=== PATIENT | male | born 1975 | race Caucasian/White ===

== ENCOUNTER 2020-04-21 11:02 | Emergency (ER) | payer MEDICAID, SELFPAY ==
[2020-04-21 11:07] VITALS: BP 154/94; PULSE 84; RESP 18; TEMP 36.6; O2SAT 96
--- NOTE | 2020-04-21 11:15 | DI.RAD_ITS ---
EXAM: XR PORTABLE CHEST AP CLINICAL HISTORY: cough, R wheeze. TECHNIQUE: 2D digital imaging was performed. COMPARISON: No exams were available for comparison FINDINGS: LUNGS: Clear. No pleural abnormality seen. HEART: Normal. MEDIASTINUM: Normal. OTHER FINDINGS: None. IMPRESSION: No acute pulmonary findings. DATA REPOSITORY: RADIATION DOSE DELIVERED: Total DLP
--- NOTE | 2020-04-21 11:16 | ED.GENADUL_ITS ---
Discharge Plan Disposition Patient Disposition: HOME Condition: Improving Discharge Details Clinical Impression: Bronchitis with bronchospasm Primary Care Provider: Carmela,[facility] ED Provider: Donaldo Girard Home Meds and New Rx's Prescriptions: New doxycycline hyclate 100 mg capsule 100 mg PO BID 7 Days Qty: 14 RF: 0 Discharge Instructions Instructions: Acute Bronchitis (ED) Additional Instructions: May use albuterol inhaler 1 to 2 puffs every 4 hours as needed for cough or wheezing. Return if you feel you need to use the inhaler more frequently Take antibiotics as prescribed. May use nmof-dhi-jylekri Mucinex once daily to help break up secretions. We will ask our care management team to arrange a follow-up for you to establish local primary care. Stand Alone Forms: PENDING COVID-19 TESTING Medical Decision Making 44-year-old male former smoker presents with approximately 3 days of cough, congestion, sore throat, right sinus pressure. Sick contacts with his children at home. No travel outside of the critical access hospital. He has been eating and drinking okay and a constitutional review of systems is otherwise negative. He is afebrile with 96% sat on room air. His exam is most notable for right base wheeze. Differential gnosis includes bronchitis, bronchospasm, viral syndrome. Must exclude pneumonia. Patient was given albuterol inhaler with spacer, swab for COVID-19, referred for chest x-ray. Chest x-ray without focal infiltrate. Patient improved following inhaled beta agonist. I will place him on a course of doxycycline for presumed developing bronchitis given his history of previous tobacco use. He is stable and improving. We will arrange for outpatient follow-up to establish primary care. HPI General Mode of arrival: ambulatory . Date/Time Provider Initiated Documentation: 04/21/20 11:02 . Limitations to Documentation: no limitations . Information obtained by: patient . History of Present Illness 44 year old M presents to the emergency department with the chief complaint of Cough, congestion, right sinus discomfort, described as moderate and similar to prior episodes, Quality is described as dull and constant, and is localized to the chest. Patient reports no radiation. Patient started experiencing this day(s) and it has been constant. No relieving factors improve symptom(s), No exacerbating factors reported . Patient notes cough and other (Slight wheeze); denies fever/chills. Patient did receive the following treatments prior to arrival, none Related Data Home Medications Medication Instructions Recorded Confirmed doxycycline hyclate 100 mg PO BID 7 Days #14 cap 04/21/20 Previous Rx's Medication Instructions Recorded doxycycline hyclate 100 mg PO BID 7 Days #14 cap 04/21/20 Allergies Allergy/AdvReac Type Severity Reaction Status Date / Time No Known Allergies Allergy Unverified 04/21/20 11:11 General Stated Complaint: RespSymp ARABELLA: 3 Review of Systems Narrative: Sick contacts with kids who had similar. No nausea or vomiting. No chest pain or palpitations. Inability to swallow. Feels congested. Questions wheezing. 8 systems reviewed and otherwise negative [facility] Social History Smoking/Tobacco Use Status: Former Tobacco Use Alcohol Intake: current Alcohol Intake frequency: a few times a month Drug use: Never Substance use type: does not use Do you feel safe at home: Yes Do you feel safe in your relationship?: Yes Exam Narrative Exam Narrative: GEN: awake, alert, oriented 3. Pleasant, well groomed, interactive. HEAD: Normocephalic, atraumatic ENT: Mucous membranes moist, oropharynx unremarkable, External ear exam unremarkable EYES: PERRL, EOMI NECK: Full ROM, no LENCHO, no menigismus CHEST/RESP: Nontender, right base wheeze otherwise clear CARDIOVASCULAR: RRR, no murmur, rub wendi. 2+ Rad pulse bilateral ABDOMEN: Soft, nontender, no mass. +Bowel sounds EXT: Full ROM, no edema, no rash Neuro: Grossly normal neurologic exam, conversant, interactive. Psych: Speech fluent, thoughts congruent, affect normal Course Vital Signs Vital signs: Vital Signs Temperature 36.6 C 04/21/20 11:07 Pulse 84 04/21/20 11:07 Respiratory Rate 18 04/21/20 11:07 Blood Pressure 154/94 H 04/21/20 11:07 Pulse Oximetry 96 04/21/20 11:07 Temperature 36.6 C 04/21/20 11:07 Temperature Source Skin 04/21/20 11:07 Pulse 84 04/21/20 11:07 Respiratory Rate 18 04/21/20 11:07 Respiratory Effort Non-Labored 04/21/20 11:10 Blood Pressure 154/94 H 04/21/20 11:07 Blood Pressure Position Sitting 04/21/20 11:07 Pulse Oximetry 96 04/21/20 11:07 Oxygen Delivery Method Room Air 04/21/20 11:07 Oxygen Flow Rate 0 04/21/20 11:07 Pain Level 5 04/21/20 11:07
--- NOTE | 2020-04-21 12:02 | DI.VRAD_ITS ---
PROCEDURE INFORMATION: Exam: XR Chest, 1 View Exam date and time: 04/21/2020 11:47 AM Age: 44 years old Clinical indication: Shortness of breath TECHNIQUE: Imaging protocol: XR of the chest Views: 1 view. COMPARISON: No relevant prior studies available. FINDINGS: Lungs: Unremarkable. No consolidation. Pleural space: Unremarkable. No pleural effusion. No pneumothorax. Heart/Mediastinum: Unremarkable. No cardiomegaly. Bones/joints: Unremarkable. IMPRESSION: No acute findings. Dictated and Authenticated by: Donald Parmar MD. Ordering:JOSE Fulton MD
[2020-04-21 12:15] VITALS: BP 140/91; PULSE 79; RESP 20; TEMP 37.3; O2SAT 94
[2020-04-23 23:53] LABS: Patient Race White; SARS-CoV-2 RNA Undetected (Undetected); SARS-CoV-2 Specimen Source Nasopharynx
--- NOTE | 2020-04-24 08:44 | NUR.NOTE ---
Nursing Note: Contacted patient via phone # electronic equipment installer to report negative covid test. Pt did not answer and unable to leave voicemail.
--- NOTE | 2020-04-24 08:58 | NUR.NOTE ---
Nursing Note: Pt called and was notified of negative covid results
== END 2020-04-21 12:22 | disposition home or self-care (01) ==
LOC: ER 12:19
PROVIDERS: Emergency Provider Emergency Medicine
DX: J20.8 Acute bronchitis due to other specified organisms (principal); J02.9 Acute pharyngitis, unspecified; Z03.818 Encounter for observation for suspected exposure to other biological agents ruled out; R51.9 Headache, unspecified
CPT/HCPCS: 99283; U0003; 71045; 99284

== ENCOUNTER 2020-05-11 23:17 | Emergency (ER) | payer MEDICAID, SELFPAY ==
[2020-05-11 23:24] VITALS: BP 119/81; PULSE 97; RESP 16; TEMP 36.5; O2SAT 98
--- NOTE | 2020-05-11 23:30 | RT.EKG_ITS ---
APPROVED REPORT Exam: Resting ECG Patient Location: E HR:87 bpm ECG Measurements Heart Rate 87 AXIS PA 152 P 16 QRSd 120 QRS -13 QT 372 T 20 QTc 448 Conclusion EKG 23: 42 Rate 87, sinus rhythm, no significant ST elevations or depressions, no evidence of STEMI. nonspecific intraventricular conduction delay
--- NOTE | 2020-05-11 23:38 | ED.GENADUL_ITS ---
Discharge Plan Disposition Patient Disposition: HOME Condition: Good Discharge Details Clinical Impression: Anxiety, Acute bronchospasm Primary Care Provider: Lori Merritt ED Provider: Mak Graham Home Meds and New Rx's Prescriptions: Continued albuterol sulfate 90 mcg/actuation HFA aerosol inhaler 2 puff inhalation Q4H PRNRF: 0 Flovent HFA 44 mcg/actuation HFA aerosol inhaler 2 puff inhalation BID Qty: 10.6 RF: 1 Discharge Instructions Instructions: Bronchospasm (ED), Anxiety (ED) Additional Instructions: At this time symptoms appear to be inconsistent with pneumonia, heart attack, or other life-threatening etiology. Your vital signs are reassuringly normal. I suspect there is a combination of mild postnasal drip that is causing some of your symptoms in conjunction with, as we discussed, potential for an anxiety component as well. Please continue your inhalers as directed at home. Do not hesitate to contact me in the emergency department if your symptoms persist or worsen. If you notice any worsening of your symptoms, or any new symptoms such as vomiting, diarrhea, fever, chills, shortness of breath, chest pain, numbness, weakness, or fainting , please return immediately to the emergency department for reevaluation. Please follow up with your primary care provider as soon as possible for reassessment and reevaluation. As always, it was a pleasure participating in your medical care today. Referrals: Lori Merritt, STAINING MACHINE OPERATOR [Primary Care Provider] - Discharge Data Discharge Date/Time-TO BE ENTERED AT DEPARTURE: 05/11/20 23:50 Medical Decision Making Pleasant 44-year-old male with no significant past medical history who presents today for evaluation of a brief episode of a globus sensation. Patient states that few weeks ago he had similar episode of feeling like there was something stuck in his throat, and at that time additionally had mild shortness of breath, after work-up here he was prescribed albuterol, chest x-ray is negative discharged home with eventual follow-up with his PCP. He was started on a steroid inhaler as well. This evening he states that he was lying in bed, felt a small amount of sputum in the back of his throat, and felt like suddenly could not breathe. He sat up, drank some water was able to get this down well without difficulty. He denied any associated chest pain chest tightness tearing sensation in his chest, arm neck or shoulder pain. He denied any pleuritic chest pain. He took a few puffs of his inhaler, then came to the ER for further evaluation. Currently states that his symptoms are completely resolved and he feels well. He currently denies any difficulty swallowing breathing or pain or significant sensation in his throat. He is able to eat and drink without difficulty. He states that the symptoms that he had today are definitely more mild than his previous episode, but he was concerned and felt that evaluation was indicated. He denies any chronic or gradual difficulty swallowing. He denies any vomiting. He does admit to being under a significant amount of stress as of late, and does feel that perhaps this could be a form of panic attack. He denies any other complaints at this time. Exam is notably unremarkable, vital signs stable. Resting heart rate shows no evidence of tachycardia on exam. Patient feels well at this time. Screening EKG demonstrates no signs of STEMI or other abnormality. I did offer the patient further laboratory work-up and imaging of the neck and chest, but at this time with a resolution of his symptoms patient feels well and would like to go home. I feel his symptoms are likely secondary to a component of panic or anxiety. There may be a small component of postnasal drip as well. Recommended loratadine or Benadryl as needed for home use. At this time signs and symptoms appearing consistent with dissection, ACS, Ludewig's angina, angioedema, or other life-threatening etiology. Respecting the patient's wishes will discharge home. No current signs of acute life-threatening etiology. Discussed red flags which to return. I have extensively reviewed the treatment plan and discharge instructions with the patient. I have addressed all patient concerns at this time. The patient was made aware of what symptoms to monitor for that would warrant a return to the emergency department. Discussed the plan with the patient, they demonstrate verbal understanding and agreement with our assessment and plan at this time. EKG 23: 42 Rate 87, intervals normal, sinus rhythm, no significant ST elevations or depressions, no evidence of STEMI, HPI General Date/Time Provider Initiated Documentation: 05/11/20 23:20 . HPI Narrative: Pleasant 44-year-old male with no significant past medical history who presents today for evaluation of a brief episode of a globus sensation. Patient states that few weeks ago he had similar episode of feeling like there was something stuck in his throat, and at that time additionally had mild shortness of breath, after work-up here he was prescribed albuterol, chest x-ray is negative discharged home with eventual follow-up with his PCP. He was started on a steroid inhaler as well. This evening he states that he was lying in bed, felt a small amount of sputum in the back of his throat, and felt like suddenly could not breathe. He sat up, drank some water was able to get this down well without difficulty. He denied any associated chest pain chest tightness tearing sensation in his chest, arm neck or shoulder pain. He denied any pleuritic chest pain. He took a few puffs of his inhaler, then came to the ER for further evaluation. Currently states that his symptoms are completely resolved and he feels well. He currently denies any difficulty swallowing breathing or pain or significant sensation in his throat. He is able to eat and drink without difficulty. He states that the symptoms that he had today are definitely more mild than his previous episode, but he was concerned and felt that evaluation was indicated. He denies any chronic or gradual difficulty swallowing. He denies any vomiting. He does admit to being under a significant amount of stress as of late, and does feel that perhaps this could be a form of panic attack. He denies any other complaints at this time. Related Data Home Medications Medication Instructions Recorded Confirmed albuterol sulfate 90 mcg/actuation 2 puff INHALATION Q4H PRN g 04/30/20 05/11/20 aerosol inhaler fluticasone propionate 44 2 puff INHALATION BID #10.6 g 04/30/20 05/11/20 mcg/actuation HFA aerosol inhaler Previous Rx's Medication Instructions Recorded fluticasone propionate 44 2 puff INHALATION BID #10.6 g 04/30/20 mcg/actuation HFA aerosol inhaler Allergies Allergy/AdvReac Type Severity Reaction Status Date / Time No Known Allergies Allergy Unverified 05/11/20 23:27 General Stated Complaint: GenMedical ARABELLA: 4 Review of Systems All systems reviewed & are unremarkable except as noted in HPI and below PFSH Medical History History of kidney stones History of sciatica RLE Obesity Social History Smoking/Tobacco Use Status: Former Tobacco Use Tobacco: How many years used: 30 Smokeless tobacco user: chewing tobacco Counseling given: provider counseling Smoking risk assessment performed?: Yes Alcohol Intake: current Alcohol Intake frequency: a few times a month Drug use: Never Substance use type: does not use Household members: spouse and children Number of Children: 6 Communication Needs: None Do you need help understanding health information?: Rarely current occupation: Unemployed Sexually active: Yes Do you think of yourself as: straight/heterosexual Current gender identity: male Do you feel safe at home: Yes Do you feel safe in your relationship?: Yes Exam Narrative Exam Narrative: 1.Const: Well-nourished, Well-developed, appearing stated age 2.Eyes: PERRL, no conjunctival injection, and symmetrical lids. 3.ENT: Atraumatic external nose and ears. Moist MM. Neck: Symmetric, trachea midline, No thyromegaly. No evidence of swelling in the posterior oropharynx. No tongue enlargement or angioedema. No signs of airway compromise or peritonsillar abscess whatsoever. No evidence of dental caries. No evidence of Ludewig's angina. Palpation of the throat demonstrates no evidence of swelling deviation or other abnormality. Visual inspection demonstrates the patient's excellent ability to swallow with no signs of airway compromise 4.CVS: +S1/S2, No murmurs or gallops. Peripheral pulses 2+ and equal in all extremities. Brisk capillary refill in all extremities. 5.RESP: Unlabored respiratory effort. Clear to auscultation bilaterally. No wheezes rales or rhonchi 6.GI: Soft, Nontender/Nondistended, No hepatosplenomegaly. No guarding or rebound. 7.MSK: Normocephalic/Atraumatic, Extremities w/o deformity or ttp No cyanosis or clubbing, Normal movement of all extremities 8.Skin: Warm, Dry. No rashes or lesions. 9.Neuro: digital marketing officer II-XII grossly intact. Sensation grossly intact, no focal neurologic deficits. 10.Psych: (AAO) x3. Appropriate mood and affect Course Vital Signs Vital signs: Vital Signs Temperature 36.5 C 05/11/20 23:24 Pulse 97 H 05/11/20 23:24 Respiratory Rate 16 05/11/20 23:24 Blood Pressure 119/81 05/11/20 23:24 Pulse Oximetry 98 05/11/20 23:24 Temperature 36.5 C 05/11/20 23:24 Temperature Source Skin 05/11/20 23:24 Pulse 97 H 05/11/20 23:24 Respiratory Rate 16 05/11/20 23:24 Respiratory Effort Non-Labored 05/11/20 23:24 Blood Pressure 119/81 05/11/20 23:24 Blood Pressure Position Sitting 05/11/20 23:24 Pulse Oximetry 98 05/11/20 23:24 Oxygen Delivery Method Room Air 05/11/20 23:24 Oxygen Flow Rate 0 05/11/20 23:24
== END 2020-05-11 23:50 | disposition home or self-care (01) ==
PROVIDERS: Emergency Provider Student in an Organized Health Care Education/Training Program; PCP Nurse Practitioner Adult Health
DX: J98.01 Acute bronchospasm (principal); F41.9 Anxiety disorder, unspecified; F45.8 Other somatoform disorders
CPT/HCPCS: 93005; 99283; 93010

== ENCOUNTER 2020-05-18 09:21 | Outpatient (CLI) | payer MEDICAID, SELFPAY ==
--- NOTE | 2020-05-18 10:15 | DI.RAD_ITS ---
EXAM: XR CHEST 2V PA LATERAL CLINICAL HISTORY: Bronchitis with bronchospasm, J20.9, r/o acute process TECHNIQUE: 2D digital imaging was performed. COMPARISON: CR,XR XR PORTABLE CHEST AP from 04/21/2020 FINDINGS: The heart is not enlarged. The lungs are clear and well expanded. No pleural effusion seen. Mediastin al contours appear intact. IMPRESSION: Normal chest. RADIATION DOSE DELIVERED: Total DLP
== END 2020-05-18 09:41 ==
PROVIDERS: PCP Nurse Practitioner Adult Health; Visit Provider Nurse Practitioner Adult Health
DX: J20.9 Acute bronchitis, unspecified (principal)
CPT/HCPCS: 71046

== ENCOUNTER 2020-05-23 21:21 | Emergency (ER) | payer MEDICAID, SELFPAY ==
--- NOTE | 2020-05-23 21:15 | RT.EKG_ITS ---
APPROVED REPORT Exam: Resting ECG Patient Location: E HR:66 bpm ECG Measurements Heart Rate 66 AXIS W[place] 155 P 5 QRSd 120 QRS -5 QT 390 T 12 QTc 407 Conclusion Sinus rhythm...normal P axis, V-rate 60- 99 Nonspecific intraventricular conduction delay...QRSd >115mS, not LBBB/RBBB
[2020-05-23 21:29] VITALS: BP 130/80; PULSE 74; RESP 18; TEMP 37.1; O2SAT 98
--- NOTE | 2020-05-23 21:37 | ED.GENADUL_ITS ---
Discharge Plan Disposition Patient Disposition: HOME Condition: Stable Discharge Details Clinical Impression: Globus sensation, Chest pain, Anxiety Primary Care Provider: Lori Merritt ED Provider: Claudio Whitman Home Meds and New Rx's Prescriptions: Continued Flovent HFA 44 mcg/actuation HFA aerosol inhaler 2 puff inhalation BID Qty: 10.6 RF: 1 levalbuterol tartrate [Xopenex HFA] 45 mcg/actuation HFA aerosol inhaler 2 inh inhalation Q4H PRN (Reason: shortness of breath or wheezing) Qty: 15 RF: 0 fluticasone propionate [Flonase Allergy Relief] 50 mcg/actuation spray,suspension 1 - 2 spray intranasal DAILY Qty: 9.9 RF: 0 clonazepam 0.5 mg tablet 0.5 mg PO BID PRN (Reason: acute anxiety/panic) Qty: 6 RF: 0 Discharge Instructions Instructions: Chest Pain (ED) Additional Instructions: Follow up as with your primary care provider within 1 week if you develop severe worsening pain or feel more ill return to the emergency department Medical Decision Making 44 yo male with hx of prior smoking, recent treatment with prednisone for bronchospasm which he finished yesterday per patient, and was recently prescribed klonopin for anxiety and has been having issues with a globus sensation in his throat comes in with continued feeling as though he has a lump in his throat and tonight about 4 hours ago started to have burning and tightness in his chest that has been happening off and on for the past 3 weeks. ARrives hd stable does appear anxious on exam speaking in full sentences. He has clear lungs and no murmurs, denies drug use. No leg swelling or calf pain, no pleuritic chest pain and no hypoxia or tachycardia so doubt PE. His pain could be due to gerd or anxiety, heart score is 2, will obtain troponin. He does note the chest and throat discomfort so possibility for a dissection, will obtain cta and monitor. CT unremarkable though comment can't exclude PE though my clinical suspicion for this is low and was more concerned for dissection which was negative. He feels better after the ativan. Still has globus sensation and ct goes up through the neck and shows no abnormalities of concern.Given patient has had symptoms over 3 hours do not feel repeat troponin would be of benefit, will d/c home and advised to f/u with pcp this week and has an appointment Thursday per pt. Return precautions given Differential Diagnosis Differential Diagnosis: dissection, globus sensation, nstemi, anxiety Medical Records Medical records reviewed: Yes I reviewed the patient's medical records. Imaging Data Radiologic Study: Attestation: I personally reviewed and interpreted this imaging study as follows: Imaging: CT Scan Radiologist's impression: FINDINGS: Pulmonary arteries: Due to timing of the scan after the administration of intravenous contrast, the pulmonary arteries are not adequately opacified to diagnostically evaluate for pulmonary embolus. Aorta: No aortic aneurysm. No aortic dissection. Lungs: No consolidation. No masses. Pleural space: Unremarkable. No pneumothorax. No pleural effusion. Heart: No cardiomegaly. No pericardial effusion. Lymph nodes: Unremarkable. No enlarged lymph nodes. Liver: Hepatic steatosis. Bones/joints: No acute fracture. Soft tissues: Unremarkable. IMPRESSION: Due to timing of the scan after the administration of intravenous contrast, the pulmonary arteries are not adequately opacified to diagnostically evaluate for pulmonary embolus. ECG Data Attestation: I personally reviewed and interpreted this ECG (s) as follows: Prior ECG tracings: not available for review Interpretation: sinus rhythm, rate of 66 pr 155 qtc 407 HPI General Mode of arrival: ambulatory . Date/Time Provider Initiated Documentation: 05/23/20 21:24 . Limitations to Documentation: no limitations . Information obtained by: patient . History of Present Illness 44 year old M presents to the emergency department with the chief complaint of chest burning, described as moderate, Patient started experiencing this week(s) (3) and it has been intermittent. No relieving factors improve symptom(s), No exacerbating factors reported . Patient notes other (globus sensation in throat). Related Data Home Medications Medication Instructions Recorded Confirmed fluticasone propionate 44 2 puff INHALATION BID #10.6 g 04/30/20 05/23/20 mcg/actuation HFA aerosol inhaler fluticasone propionate 50 1 - 2 spray INTRANASAL DAILY #9.9 05/14/20 05/23/20 mcg/actuation nasal ml spray,suspension levalbuterol tartrate 45 2 inh INHALATION Q4H PRN #15 g 05/14/20 05/23/20 mcg/actuation aerosol inhaler clonazepam 0.5 mg tablet 0.5 mg PO BID PRN #6 tab 05/18/20 05/23/20 Previous Rx's Medication Instructions Recorded fluticasone propionate 44 2 puff INHALATION BID #10.6 g 04/30/20 mcg/actuation HFA aerosol inhaler fluticasone propionate 50 1 - 2 spray INTRANASAL DAILY #9.9 05/14/20 mcg/actuation nasal ml spray,suspension levalbuterol tartrate 45 2 inh INHALATION Q4H PRN #15 g 05/14/20 mcg/actuation aerosol inhaler clonazepam 0.5 mg tablet 0.5 mg PO BID PRN #6 tab 05/18/20 Allergies Allergy/AdvReac Type Severity Reaction Status Date / Time No Known Allergies Allergy Unverified 05/18/20 11:48 General Stated Complaint: Chest Pain ARABELLA: 2 Review of Systems All systems reviewed & are unremarkable except as noted in HPI and below Constitutional Constitutional: Denies chills, Denies fever(s) and Denies weakness Cardiovascular Cardiovascular: Denies dyspnea Respiratory Respiratory: Denies cough and Denies dyspnea Gastrointestinal Gastrointestinal: Denies abdominal pain, Denies nausea and Denies vomiting Musculoskeletal Musculoskeletal: Denies joint swelling Neurologic Neurologic: Denies weakness Psychiatric Psychiatric: Denies depression [facility] Medical History History of kidney stones History of sciatica RLE Obesity Social History Smoking/Tobacco Use Status: Former Tobacco Use Tobacco: How many years used: 30 Smokeless tobacco user: chewing tobacco Counseling given: provider counseling Smoking risk assessment performed?: Yes Alcohol Intake: current Alcohol Intake frequency: a few times a month Drug use: Never Substance use type: does not use Household members: spouse and children Number of Children: 6 Communication Needs: None Do you need help understanding health information?: Rarely current occupation: Unemployed Sexually active: Yes Do you think of yourself as: straight/heterosexual Current gender identity: male Do you feel safe at home: Yes Do you feel safe in your relationship?: Yes Exam Const General: anxious Orientation: alert HENMT Head: normal to inspection Ears: external ears normal General nose exam: external nose normal Mouth: moist mucous membranes Eyes General: appearance normal, both eyes and all related structures Neck Neck: normal visual inspection Resp Effort & Inspection: normal respiratory effort and able to speak in complete sentences Cardio Rate: regular rate Skin General skin exam: no rashes or lesions noted Neuro General: patient alert and patient oriented x3 Extrem General: normal to inspection Psych Mental Status: mental status grossly normal Course Vital Signs Vital signs: Vital Signs Temperature 37.1 C 05/23/20 21:29 Pulse 74 05/23/20 21:29 Respiratory Rate 18 05/23/20 21:29 Blood Pressure 130/80 05/23/20 21:29 Pulse Oximetry 98 05/23/20 21:29 Temperature 37.1 C 05/23/20 21:29 Pulse 74 05/23/20 21:29 Respiratory Rate 18 05/23/20 21:29 Blood Pressure 130/80 05/23/20 21:29 Blood Pressure Position Supine 05/23/20 21:29 Pulse Oximetry 98 05/23/20 21:29 Oxygen Delivery Method Room Air 05/23/20 21:29 Oxygen Flow Rate 0 05/23/20 21:29 Pain Level 2 05/23/20 21:29
[2020-05-23] MEDS: Normal Saline Flush 10 ML SYR IVP (21:39)
[2020-05-23] MEDS: LORazepam 2 MG/ML VIAL 1 MG IVP (21:39)
[2020-05-23 21:48] LABS: Abs Immature Grans 0.05 10^3/uL (0.0-0.06); Absolute Basophil Count 0.06 10^3/uL (0.0-0.2); Absolute Lymphocyte Count 2.36 10^3/uL (1.2-3.4); Absolute Monocyte Count 0.88 10^3/uL (0.1-0.8); Basophils % 0.5; Eosinophils % 1.6; HGB 13.8 g/dL (13.5-17.5); Immature Grans % 0.4; Lymphocytes % 19.2; MCH 29.1 pg (27.0-33.0); MCHC 32.9 % (32.0-36.0); MCV 88.6 fL (80-95); Monocytes % 7.2; Neutrophils % 71.1; Nucleated RBC 0 %; Platelet Count 250 10^3/uL (130-400); RBC 4.74 10^6/uL (4.36-5.78); RDW 12.7 % (11.8-14.1); RDW-SD 41.5 fL; WBC 12.28 10^3/uL (4.4-10.8)
[2020-05-23 21:49] LABS: Absolute Neutrophil Count 8.73 10^3/uL (1.2-6.7)
[2020-05-23] MEDS: Normal Saline - Diluent 50 ML VIAL IV (21:52)
[2020-05-23] MEDS: Omnipaque 350 MG/ML 100 ML BTL IJ (21:52)
[2020-05-23 21:59] LABS: ALT 39 U/L (16-63); AST 16 U/L (15-37); Albumin 3.7 g/dL (3.4-5.0); Alkaline Phosphatase 127 U/L (46-116); Anion Gap 9.6 mmol/L (3-11); BUN 11 mg/dL (7-18); Bilirubin, Total 0.3 mg/dL (0.2-1.0); CO2 26.4 mmol/L (21.0-32.0); Calcium 8.6 mg/dL (8.5-10.1); Chloride 105 mmol/L (98-107); Glucose 116 mg/dL (74-106); Magnesium 2.1 mg/dL (1.8-2.4); Potassium 3.5 mmol/L (3.5-5.1); Sodium 141 mmol/L (136-145); Total Protein 7.1 g/dL (6.4-8.2)
[2020-05-23 22:05] LABS: Troponin I < 0.05 ng/mL (<0.06)
--- NOTE | 2020-05-23 22:05 | DI.CT_ITS ---
EXAM: CT THORAX CTA CLINICAL HISTORY: chest and throat discomfort. TECHNIQUE: Imaging Protocol: Axial CT angiography was performed with multi-slice acquisition and mu lti-planar and/or 3D reconstructions. CONTRAST MATERIAL: Intravenous: Omnipaque 350 Contrast volume:100 mL COMPARISON: CR XR CHEST 2V PA LATERAL from 05/18/2020 FINDINGS: Pulmonary Arteries: The pulmonary arteries are not adequately opacified for evaluation of pulmonary e mboli on this examination. Tracheobronchial tree: Patent where visualized. Mediastinum and Mary: No dominant adenopathy or fluid collection. Pulmonary parenchyma: No consolidation or dominant measurable mass. No architectural distortion. Pleura: No effusion or pneumothorax. Heart: The heart is not dilated. No coronary artery calcifications are seen. No pericardial effusion. Aorta: Thoracic aorta non-dilated. No dissection. Upper abdomen: Diffuse fatty infiltration of the liver. Bones: Mild degenerative changes. Soft tissues: IMPRESSION: 1. Cannot diagnostically evaluate for pulmonary emboli due to the timing of the administration of the IV contrast. 2. No acute pulmonary process. RADIATION DOSE DELIVERED: 911.12mGy.cm Total DLP DATA REPOSITORY: All CT scans at this facility are submitted to the National Radiology Data Registry (NRDR) Dose Index Registry (DIR) with the [employer] ([employer]). RADIATION OPTIMIZATION: All CT scans at this facility use at least one of these dose optimization te chniques: automated exposure control; mA and/or kV adjustment per patient size (includes targeted exa ms where dose is matched to clinical indication); or iterative reconstruction.
[2020-05-23 22:12] VITALS: RESP 18
--- NOTE | 2020-05-23 22:19 | DI.VRAD_ITS ---
PROCEDURE INFORMATION: Exam: CT Angiography Chest With Contrast Exam date and time: 05/23/2020 9:55 PM Age: 44 years old Clinical indication: Chest pain; Type not specified; Patient HX: Chest and throat discomfort [id number]; Additional info: Please include throat in sfov per ordering physician. PT has been experiencing a tightness in his throat for approx 1 month S/P choking on hot coffee. PT was seen by his primary care provider and prescribed prednisone. PT recently finished the prednisone but does not feel any better. Continues to have difficulty breathing and today has started experiencing a burning sensation in his chest. TECHNIQUE: Imaging protocol: Computed tomographic angiography of the chest with intravenous contrast. 3D rendering (Not supervised by radiologist): MIP and/or 3D reconstructed images were created by the technologist. Radiation optimization: All CT scans at this facility use at least one of these dose optimization techniques: automated exposure control; mA and/or kV adjustment per patient size (includes targeted exams where dose is matched to clinical indication); or iterative reconstruction. Contrast material: [id number]; Contrast volume: 100 ml; Contrast route: INTRAVENOUS (IV); COMPARISON: CR XR CHEST 2V PA LATERAL 05/18/2020 11:05 AM FINDINGS: Pulmonary arteries: Due to timing of the scan after the administration of intravenous contrast, the pulmonary arteries are not adequately opacified to diagnostically evaluate for pulmonary embolus. Aorta: No aortic aneurysm. No aortic dissection. Lungs: No consolidation. No masses. Pleural space: Unremarkable. No pneumothorax. No pleural effusion. Heart: No cardiomegaly. No pericardial effusion. Lymph nodes: Unremarkable. No enlarged lymph nodes. Liver: Hepatic steatosis. Bones/joints: No acute fracture. Soft tissues: Unremarkable. IMPRESSION: Due to timing of the scan after the administration of intravenous contrast, the pulmonary arteries are not adequately opacified to diagnostically evaluate for pulmonary embolus. Dictated and Authenticated by: Juan Carlson MD. Ordering:YUNG Snyder MD
[2020-05-23 22:26] VITALS: BP 128/74; PULSE 69; RESP 15; TEMP 36.7; O2SAT 96
== END 2020-05-23 22:44 | disposition home or self-care (01) ==
PROVIDERS: Emergency Provider Emergency Medicine; PCP Nurse Practitioner Adult Health
DX: R09.89 Other specified symptoms and signs involving the circulatory and respiratory systems (principal); F45.8 Other somatoform disorders; R07.89 Other chest pain; F41.9 Anxiety disorder, unspecified
CPT/HCPCS: 36415; 71275; 80053; 93005; 96374; 99285; 83735; 84484; 85025; 93010; 99284; J2060; J3490

== ENCOUNTER 2020-10-17 02:40 | Outpatient (CLI) | payer MEDICAID, SELFPAY ==
[2020-10-18 14:19] LABS: COVID-19 RT-PCR UVMMC Result Negative (Negative)
== END 2020-10-17 02:41 | disposition home or self-care (01) ==
LOC: LBO 02:40
PROVIDERS: PCP Nurse Practitioner Adult Health; Visit Provider Nurse Practitioner Adult Health
DX: Z20.822 Contact with and (suspected) exposure to COVID-19 (principal)
CPT/HCPCS: U0003

== ENCOUNTER 2020-11-03 17:54 | Emergency (ER) | payer MEDICAID, SELFPAY ==
[2020-11-03 18:05] VITALS: BP 173/106; PULSE 98; RESP 16; O2SAT 98
--- NOTE | 2020-11-03 18:09 | ED.GENADUL_ITS ---
Discharge Plan Disposition Patient Disposition: HOME Condition: Stable Discharge Details Clinical Impression: Diabetes mellitus, new onset Primary Care Provider: Lori Merritt ED Provider: Mak Graham Home Meds and New Rx's Prescriptions: New metformin 500 mg tablet 500 mg PO BID Qty: 30 RF: 0 (DME) lancets [Accu-Chek Softclix Lancets] Misc See Rx Instructions .ROUTE .MEDSUPPLY Qty: 100 RF: 0 (DME) Accu-Chek Guide test strips Strip See Rx Instructions .ROUTE .MEDSUPPLY Qty: 100 RF: 0 (DME) blood-glucose meter Kit See Rx Instructions .ROUTE .MEDSUPPLY Qty: 1 RF: 0 Continued ibuprofen 600 mg tablet 600 mg PO Q8H PRN (Reason: pain) Qty: 30 RF: 0 citalopram 20 mg tablet 20 mg PO DAILY Qty: 90 RF: 1 fluticasone propionate [Flonase Allergy Relief] 50 mcg/actuation spray,suspension 1 - 2 spray intranasal DAILY Qty: 9.9 RF: 3 clonazepam 0.5 mg tablet 0.5 mg PO BID PRN (Reason: acute anxiety/panic) Qty: 10 RF: 0 levalbuterol tartrate [Xopenex HFA] 45 mcg/actuation HFA aerosol inhaler 2 inh inhalation Q4H PRN (Reason: shortness of breath or wheezing) Qty: 15 RF: 6 Discharge Instructions Instructions: Type 2 Diabetes in Adults: New Diagnosis (ED), Diabetes and Nutrition (ED) Additional Instructions: A prescription for Metformin, a glucometer, testing strips and lancets have been sent electronically to your pharmacy. Check your sugar regularly as directed. Call your primary care doctor on Thursday morning to schedule a follow-up appointment for reevaluation this week and for diabetes education. Return immediately to the emergency department if you develop any worsening or new concerning symptoms. Discharge Data Discharge Date/Time-TO BE ENTERED AT DEPARTURE: 11/03/20 22:25 Discharge Physician: Nancy Arora Medical Decision Making <Nancy Arora DO - Last Filed: 11/04/20 10:17> 45-year-old male with a history of morbid obesity presents for polyuria polydipsia for the past few days and blood sugar 48 at home today. Fingerstick glucose here 450. Blood pressure hypertensive. Remainder vitals within normal limits. He appears nontoxic and comfortable. His abdomen is obese. We will check screening labs, urinalysis to rule out acute DKA. Will give IV fluids and reassess. Labs reviewed. Normal white blood cell count. Glucose 500. Bicarb 19.1. Anio n gap 16.9. Potassium 3.9. VBG notes a pH of 7.35, bicarb of 20. Urinalysis notes glucose but no evidence of infection. Will give additional IV fluids, 8 units of insulin and 20 mEq IV of potassium chloride. Patient reassessed and he states he would prefer to go home. Patient remains hemodynamically stable and appears in no acute distress. Will plan for recheck BMP after 2 L of IV fluid. If glucose improves and electrolytes improve, will plan for discharge to home. Prescriptions for Metformin, glucometer, testing strips and lancets sent electronically to his pharmacy. Case endorsed to Dr. Graham to follow-up on repeat BMP after IV fluids, reassessment and final disposition. Medical Records Medical records reviewed: Yes I reviewed the patient's medical records. Lab Data Lab results reviewed: Yes I reviewed the patient's lab results. Labs: Laboratory Tests Range/Units 11/03/20 11/03/20 11/03/20 18:30 18:30 18:41 WBC (4.4-10.8) 10^3/uL 8.75 RBC (4.36-5.78) 10^6/uL 5.26 Hgb (13.5-17.5) g/dL 15.8 Hct (40.0-50.0) % 44.9 MCV (80-95) fL 85.4 MCH (27.0-33.0) pg 30.0 MCHC (32.0-36.0) % 35.2 RDW (11.8-14.1) % 12.0 Plt Count (130-400) 10^3/uL 238 MPV (8.0-11.0) fL 11.9 H Immature Gran % 0.3 Neutrophils % 71.6 Lymphocytes % 18.2 Monocytes % 7.1 Eosinophils % 1.8 Basophils % 1.0 Nucleated RBC % % 0 Absolute Neutrophils (1.2-6.7) 10^3/uL 6.26 Absolute Lymphocytes (1.2-3.4) 10^3/uL 1.59 Absolute Monocytes (0.1-0.8) 10^3/uL 0.62 Absolute Eosinophils (0.0-0.7) 10^3/uL 0.16 Absolute Basophils (0.0-0.2) 10^3/uL 0.09 VBG pH (7.31-7.41) VBG pCO2 (41-51) mmHg VBG pO2 mmHg VBG HCO3 (23-28) mmol/L VBG Total CO2 (24-29) mmol/L VBG O2 Saturation % VBG Base Excess (-2-3) mmol/L Sodium (136-145) mmol/L 133 L Potassium (3.5-5.1) mmol/L 3.9 Chloride (98-107) mmol/L 97 L Carbon Dioxide (21.0-32.0) mmol/L 19.1 L Anion Gap (3-11) mmol/L 16.9 H BUN (7-18) mg/dL 13 Creatinine (0.70-1.30) mg/dL 1.1 Estimated GFR/1.73 m2 (mL/min/1.73m2) >= 60.00 Glucose (74-106) mg/dL 500 H Calcium (8.5-10.1) mg/dL 8.9 Total Bilirubin (0.2-1.0) mg/dL 0.5 AST (15-37) U/L 13 L ALT (16-63) U/L 22 Alkaline Phosphatase (46-116) U/L 209 H Total Protein (6.4-8.2) g/dL 7.7 Albumin (3.4-5.0) g/dL 3.6 Urine Color (Yellow) Yellow Urine Clarity (Clear) Clear Urine pH (5-8) 5.0 Ur Specific [place] (1.005-1.025) 1.015 Urine Protein (Negative) mg/dL Negative Urine Ketones (Negative) mg/dL 80 H Urine Blood (Negative) Trace-intact H Urine Nitrite (Negative) Negative Urine Bilirubin (Negative) Negative Urine Urobilinogen (Up TO 0.2) EU/dL 0.2 Ur Leukocyte Esterase (Negative) Negative Urine RBC (0-2) HPF 0-2 Urine WBC (0-5) HPF Negative Ur Epithelial Cells (Negative) HPF Negative Urine Crystals (Negative) HPF Negative Urine Bacteria (Negative) HPF Negative Urine Mucus (Negative) Negative Ur Culture Indicated? No Urine Glucose (Negative) mg/dL 500 H Range/Units 11/03/20 19:15 WBC (4.4-10.8) 10^3/uL RBC (4.36-5.78) 10^6/uL Hgb (13.5-17.5) g/dL Hct (40.0-50.0) % MCV (80-95) fL MCH (27.0-33.0) pg MCHC (32.0-36.0) % RDW (11.8-14.1) % Plt Count (130-400) 10^3/uL MPV (8.0-11.0) fL Immature Gran % Neutrophils % Lymphocytes % Monocytes % Eosinophils % Basophils % Nucleated RBC % % Absolute Neutrophils (1.2-6.7) 10^3/uL Absolute Lymphocytes (1.2-3.4) 10^3/uL Absolute Monocytes (0.1-0.8) 10^3/uL Absolute Eosinophils (0.0-0.7) 10^3/uL Absolute Basophils (0.0-0.2) 10^3/uL VBG pH (7.31-7.41) 7.35 VBG pCO2 (41-51) mmHg 36 L VBG pO2 mmHg 52 VBG HCO3 (23-28) mmol/L 20 L VBG Total CO2 (24-29) mmol/L 18 L VBG O2 Saturation % 87 VBG Base Excess (-2-3) mmol/L -6 L Sodium (136-145) mmol/L Potassium (3.5-5.1) mmol/L Chloride (98-107) mmol/L Carbon Dioxide (21.0-32.0) mmol/L Anion Gap (3-11) mmol/L BUN (7-18) mg/dL Creatinine (0.70-1.30) mg/dL Estimated GFR/1.73 m2 (mL/min/1.73m2) Glucose (74-106) mg/dL Calcium (8.5-10.1) mg/dL Total Bilirubin (0.2-1.0) mg/dL AST (15-37) U/L ALT (16-63) U/L Alkaline Phosphatase (46-116) U/L Total Protein (6.4-8.2) g/dL Albumin (3.4-5.0) g/dL Urine Color (Yellow) Urine Clarity (Clear) Urine pH (5-8) Ur Specific [place] (1.005-1.025) Urine Protein (Negative) mg/dL Urine Ketones (Negative) mg/dL Urine Blood (Negative) Urine Nitrite (Negative) Urine Bilirubin (Negative) Urine Urobilinogen (Up TO 0.2) EU/dL Ur Leukocyte Esterase (Negative) Urine RBC (0-2) HPF Urine WBC (0-5) HPF Ur Epithelial Cells (Negative) HPF Urine Crystals (Negative) HPF Urine Bacteria (Negative) HPF Urine Mucus (Negative) Ur Culture Indicated? Urine Glucose (Negative) mg/dL <Mak Graham DO - Last Filed: 11/04/20 00:04> Patient was signed out to me pending reevaluation after fluids and repeat labs. On personal reassessment patient is doing very well, blood sugar has notably improved to 298. Patient feels well after the 2 L. Anion gap is improved to 13.9, vital signs have normalized. Patient is no longer tachycardic. Patient appears stable for discharge. Reviewed instructions, as well as the importance of outpatient follow-up, and new medication management. Discussed red flags which to return. I have extensively reviewed the treatment plan and discharge instructions with the patient. I have addressed all patient concerns at this time. The patient was made aware of what symptoms to monitor for that would warrant a return to the emergency department. Discussed the plan with the patient, they demonstrate verbal understanding and agreement with our assessment and plan at this time. The documentation in this chart was dictated using id[employer] dictation software. Please excuse any dictation errors. HPI <Nancy Arora DO - Last Filed: 11/04/20 10:17> General Mode of arrival: ambulatory . Date/Time Provider Initiated Documentation: 11/03/20 17:55 . Limitations to Documentation: no limitations . Information obtained by: patient . HPI Narrative: Patient is a 45-year-old male with a history of obesity, kidney stone who presents to the ED with polyuria polydipsia and high blood sugar today. Patient states he has never been diagnosed with diabetes but has been drinking and urinating more frequently so his checked his blood sugar and it was 48 today. Patient denies any fever, vomiting, chest pain, shortness of breath, abdominal pain, diarrhea or dysuria. He denies any recent travel or recent known exposure to coronavirus. Related Data Home Medications Medication Instructions Recorded Confirmed clonazepam 0.5 mg tablet 0.5 mg PO BID PRN #10 tab 05/25/20 11/03/20 levalbuterol tartrate 45 2 inh INHALATION Q4H PRN #15 g 06/05/20 11/03/20 mcg/actuation aerosol inhaler citalopram 20 mg tablet 20 mg PO DAILY #90 tab 06/08/20 11/03/20 fluticasone propionate 50 1 - 2 spray INTRANASAL DAILY #9.9 06/08/20 11/03/20 mcg/actuation nasal ml spray,suspension ibuprofen 600 mg tablet 600 mg PO Q8H PRN #30 tab 06/22/20 11/03/20 blood sugar diagnostic [Accu-Chek #100 ea 11/03/20 Guide test strips] blood-glucose meter #1 ea 11/03/20 lancets [Accu-Chek Softclix #100 ea 11/03/20 Lancets] metformin 500 mg PO BID #30 tab 11/03/20 Previous Rx's Medication Instructions Recorded clonazepam 0.5 mg tablet 0.5 mg PO BID PRN #10 tab 05/25/20 levalbuterol tartrate 45 2 inh INHALATION Q4H PRN #15 g 06/05/20 mcg/actuation aerosol inhaler citalopram 20 mg tablet 20 mg PO DAILY #90 tab 06/08/20 fluticasone propionate 50 1 - 2 spray INTRANASAL DAILY #9.9 06/08/20 mcg/actuation nasal ml spray,suspension ibuprofen 600 mg tablet 600 mg PO Q8H PRN #30 tab 06/22/20 blood sugar diagnostic [Accu-Chek #100 ea 11/03/20 Guide test strips] blood-glucose meter #1 ea 11/03/20 lancets [Accu-Chek Softclix #100 ea 11/03/20 Lancets] metformin 500 mg PO BID #30 tab 11/03/20 Allergies Allergy/AdvReac Type Severity Reaction Status Date / Time albuterol AdvReac Mild Shakiness Verified 06/08/20 13:28 (xopenex effective) prednisone AdvReac Mild Emotionally Verified 06/08/20 13:28 labile General Stated Complaint: Diabetes ARABELLA: 3 Review of Systems <Nancy Arora DO - Last Filed: 11/04/20 10:17> All systems reviewed & are unremarkable except as noted in HPI and below Constitutional Constitutional: Reports as per HPI, Denies chills and Denies fever(s) Eyes Eyes: Denies blurry vision ENT Ears, Nose, Mouth, and Throat: Denies dizziness, Denies sore throat and Denies throat swelling Cardiovascular Cardiovascular: Denies chest pain and Denies dyspnea Respiratory Respiratory: Denies cough and Denies dyspnea Gastrointestinal Gastrointestinal: Denies abdominal pain, Denies diarrhea and Denies vomiting Genitourinary Genitourinary: Denies hematuria, Denies dysuria and Reports other (Polyuria) Musculoskeletal Musculoskeletal: Denies back pain and Denies numbness Integumentary/Breasts Skin/Breast: Denies lesions and Denies rash Neurologic Neurologic: Denies dizziness, Denies localized weakness and Denies numbness Allergic/Immunologic Allergic/Immunologic: Denies throat swelling PFSH <Nancy Arora DO - Last Filed: 11/04/20 10:17> Medical History (Updated 11/03/20 @ 19:51 by Nancy Arora DO) Diabetes mellitus, new onset History of kidney stones History of sciatica RLE Obesity Surgical History (Updated 11/03/20 @ 18:52 by Nancy Arora DO) No significant past surgical history Social History Smoking/Tobacco Use Status: Former Tobacco Use Tobacco: How many years used: 30 Smokeless tobacco user: chewing tobacco Counseling given: provider counseling Smoking risk assessment performed?: Yes Alcohol Intake: current Alcohol Intake frequency: a few times a month Drug use: Never Substance use type: does not use Household members: spouse and children Number of Children: 6 Communication Needs: None Do you need help understanding health information?: Rarely current occupation: Unemployed Sexually active: Yes Do you think of yourself as: straight/heterosexual Current gender identity: male Do you feel safe at home: Yes Do you feel safe in your relationship?: Yes Exam <Nancy Arora DO - Last Filed: 11/04/20 10:17> Const General: cooperative and no acute distress Nutritional Appearance: obese morbidly obese [facility] Head: normal to inspection Face and sinus: normal facial exam Mouth: moist mucous membranes Eyes General: appearance normal, both eyes and all related structures EOM: EOM intact bilaterally Neck Neck: normal visual inspection and No submandibular swelling Lymphatic: no lymphadenopathy noted Chest Chest: normal inspection of the chest and no tenderness Resp Effort & Inspection: normal respiratory effort and able to speak in complete sentences Auscultation: clear to auscultation bilaterally Cardio Rate: regular rate Rhythm: regular rhythm GI Inspection: normal to inspection and obesity Palpation: soft, not firm, not rigid and nontender Auscultation: normal bowel sounds Skin General skin exam: no rashes or lesions noted Neuro General: patient alert, patient awake and patient oriented x3 Cognition: normal cognition Speech: speech normal Motor: muscle tone normal throughout Sensory Exam: no sensory deficits noted Extrem General: normal to inspection, full ROM, capillary refill normal, no calf te nderness bilaterally and no edema Psych Appearance: grossly normal Mental Status: mental status grossly normal Speech and Movement: speech and movement normal Affect: normal affect Course <Nancy Arora DO - Last Filed: 11/04/20 10:17> Vital Signs Vital signs: Vital Signs Pulse 98 H 11/03/20 18:05 Respiratory Rate 16 11/03/20 18:05 Blood Pressure 173/106 H 11/03/20 18:05 Pulse Oximetry 98 11/03/20 18:05 Pulse 98 H 11/03/20 18:05 Respiratory Rate 16 11/03/20 18:05 Blood Pressure 173/106 H 11/03/20 18:05 Blood Pressure Position Sitting 11/03/20 18:05 Pulse Oximetry 98 11/03/20 18:05 Oxygen Delivery Method Room Air 11/03/20 18:05 Oxygen Flow Rate 0 11/03/20 18:05 Pain Level 0 11/03/20 18:05 Sign Out <Nancy Arora DO - Last Filed: 11/04/20 10:17> Sign Out Data: Sign Out Comment: Recheck BMP after IVF and K finished. If labs improved, discharge home with metformin 500mg BID. Last updated by Nancy Arora DO at 11/03/20 19:32
[2020-11-03 18:44] LABS: Abs Immature Grans 0.03 10^3/uL (0.0-0.06); Absolute Basophil Count 0.09 10^3/uL (0.0-0.2); Absolute Eosinophil Count 0.16 10^3/uL (0.0-0.7); Absolute Lymphocyte Count 1.59 10^3/uL (1.2-3.4); Absolute Monocyte Count 0.62 10^3/uL (0.1-0.8); Absolute Neutrophil Count 6.26 10^3/uL (1.2-6.7); Eosinophils % 1.8; HCT 44.9 % (40.0-50.0); HGB 15.8 g/dL (13.5-17.5); Immature Grans % 0.3; Lymphocytes % 18.2; MCHC 35.2 % (32.0-36.0); MCV 85.4 fL (80-95); MPV 11.9 fL (8.0-11.0); Monocytes % 7.1; Neutrophils % 71.6; Nucleated RBC 0 %; Platelet Count 238 10^3/uL (130-400); RBC 5.26 10^6/uL (4.36-5.78); RDW-SD 37.5 fL; WBC 8.75 10^3/uL (4.4-10.8)
[2020-11-03 18:48] LABS: Bilirubin Negative (Negative); Blood Trace-intact (Negative); Clarity Clear (Clear); Glucose 500 mg/dL (Negative); Ketones 80 mg/dL (Negative); Leukocyte Esterase Negative (Negative); Nitrite Negative (Negative); Specific Gravity 1.015 (1.005-1.025); Urobilinogen 0.2 EU/dL (Up TO 0.2)
[2020-11-03 18:54] LABS: Albumin 3.6 g/dL (3.4-5.0); Alkaline Phosphatase 209 U/L (46-116); Anion Gap 16.9 mmol/L (3-11); BUN 13 mg/dL (7-18); Bilirubin, Total 0.5 mg/dL (0.2-1.0); CO2 19.1 mmol/L (21.0-32.0); CREATININE 1.1 mg/dL (0.70-1.30); Calcium 8.9 mg/dL (8.5-10.1); Chloride 97 mmol/L (98-107); Potassium 3.9 mmol/L (3.5-5.1); Sodium 133 mmol/L (136-145); Total Protein 7.7 g/dL (6.4-8.2)
[2020-11-03 19:02] LABS: Glucose 500 mg/dL (74-106)
[2020-11-03 19:07] LABS: Bacteria Negative HPF (Negative); C & S Indicated? No; Crystals Negative HPF (Negative); Epithelial Cells Negative HPF (Negative); Mucus Negative (Negative); RBC 0-2 HPF (0-2); WBC Negative HPF (0-5)
[2020-11-03 19:12] LABS: ALT 22 U/L (16-63)
[2020-11-03] MEDS: Normal Saline 1,000 ML 1000 ML IV (19:16)
[2020-11-03 19:19] LABS: BE (Venous) -6 mmol/L (-2-3); HCO3 (Venous) 20 mmol/L (23-28); O2 Sat (Venous) 87 %; TCO2 (Venous) 18 mmol/L (24-29); pCO2 (Venous) 36 mmHg (41-51); pH (Venous) 7.35 (7.31-7.41); pO2 (Venous) 52 mmHg
[2020-11-03 19:24] LABS: AST 13 U/L (15-37)
[2020-11-03] MEDS: Insulin REGULAR-Human 100 UNITS/ML UNIT 8 UNITS IV (19:24)
[2020-11-03] MEDS: POTASSIUM CHLORIDE 20 MEQ/100 ML BAG 50 MEQ IVPB (19:26)
[2020-11-03 21:50] LABS: Anion Gap 13.9 mmol/L (3-11); BUN 12 mg/dL (7-18); CO2 21.1 mmol/L (21.0-32.0); Calcium 8.2 mg/dL (8.5-10.1); Chloride 104 mmol/L (98-107); Glucose 298 mg/dL (74-106); Potassium 3.6 mmol/L (3.5-5.1); Sodium 139 mmol/L (136-145)
== END 2020-11-03 22:25 | disposition home or self-care (01) ==
PROVIDERS: Physician Assistant; Emergency Provider Student in an Organized Health Care Education/Training Program; PCP Nurse Practitioner Adult Health
DX: E11.65 Type 2 diabetes mellitus with hyperglycemia (principal); E11.9 Type 2 diabetes mellitus without complications
CPT/HCPCS: 36415; 36416; 80048; 80053; 82805; 82962; 96361; 96365; 96366; 96375; 99284; 81003; 81015; 85025; J3480

== ENCOUNTER 2021-01-30 03:51 | Outpatient (CLI) | payer MEDICAID, SELFPAY ==
[2021-01-30 10:02] LABS: Hemoglobin A1C 9.2 % (<5.7)
[2021-01-30 10:36] LABS: ALT 66 U/L (16-63); AST 27 U/L (15-37); Albumin 3.8 g/dL (3.4-5.0); Alkaline Phosphatase 123 U/L (46-116); Anion Gap 10.5 mmol/L (3-11); BUN 11 mg/dL (7-18); Bilirubin, Total 0.3 mg/dL (0.2-1.0); CO2 25.5 mmol/L (21.0-32.0); Calcium 8.9 mg/dL (8.5-10.1); Chloride 105 mmol/L (98-107); Glucose 108 mg/dL (74-106); Potassium 4.6 mmol/L (3.5-5.1); Sodium 141 mmol/L (136-145); TSH (W/Ref FT4) 0.28 uIU/mL (0.36-3.74)
[2021-01-30 10:57] LABS: FREE T4 1.21 ng/dL (0.76-1.46)
[2021-01-30 20:06] LABS: Calculated LDL 105 mg/dL (<100); Cholesterol 170 mg/dL (<200); HDL Cholesterol 31 mg/dL (40-60); Triglyceride 174 mg/dL (<150)
[2021-01-30 20:13] LABS: COMMENT (LAB VIEW ONLY) 139.27 mg/dL; Microalb ug/mg Crea 24.1 ug/mg Cr
== END 2021-01-30 03:52 | disposition home or self-care (01) ==
LOC: LBO 03:52
PROVIDERS: PCP Nurse Practitioner Adult Health; Visit Provider Nurse Practitioner Adult Health
DX: E11.9 Type 2 diabetes mellitus without complications (principal); R03.0 Elevated blood-pressure reading, without diagnosis of hypertension; E66.9 Obesity, unspecified
CPT/HCPCS: 36415; 80053; 80061; 82043; 82570; 83036; 84439; 84443

== ENCOUNTER 2021-05-05 15:36 | Emergency (ER) | payer MEDICAID, SELFPAY ==
[2021-05-05 15:42] VITALS: BP 153/104; PULSE 88; RESP 16; TEMP 36.9; O2SAT 97
--- NOTE | 2021-05-05 15:59 | ED.GENADUL_ITS ---
Discharge Plan Disposition Patient Disposition: HOME Condition: Improving Discharge Details Clinical Impression: Odontalgia Primary Care Provider: Lori Merritt ED Provider: Donaldo Girard Home Meds and New Rx's Prescriptions: New clindamycin HCl 300 mg capsule 300 mg PO Q6H 12 Days Qty: 48 RF: 0 ibuprofen 800 mg tablet 800 mg PO TID PRN (Reason: pain) Qty: 20 RF: 0 Continued metformin 500 mg tablet extended release 24 hr See Rx Instructions PO BID MDD 2,500mg per 24h Qty: 450 RF: 3 (DME) pen needle, diabetic [BD Ultra-Fine Yuli Pen Needle] 32 gauge x 5/32 needle See Rx Instructions .ROUTE .MEDSUPPLY Qty: 12 RF: 3 clonazepam 0.5 mg tablet 0.5 mg PO BID PRN (Reason: acute anxiety/panic) Qty: 10 RF: 0 levalbuterol tartrate [Xopenex HFA] 45 mcg/actuation HFA aerosol inhaler 2 inh inhalation Q4H PRN (Reason: shortness of breath or wheezing) Qty: 15 RF: 6 Trulicity 1.5 mg/0.5 mL pen injector 1.5 mg subcut QWEEK Qty: 8 RF: 1 losartan 50 mg tablet 50 mg PO DAILY Qty: 90 RF: 3 atorvastatin 10 mg tablet 10 mg PO QHS Qty: 90 RF: 3 (DME) Blood Glucose Test Strip See Rx Instructions .MEDSUPPLY Qty: 200 RF: 0 (DME) lancets Misc See Rx Instructions .MEDSUPPLY Qty: 200 RF: 0 (DME) Electronic BP monitor See Rx Instructions .Route .MEDSUPPLY Qty: 1 RF: 0 Discontinued clindamycin HCl 300 mg capsule 300 mg PO TID Qty: 21 RF: 0 No Action ibuprofen 600 mg tablet 600 mg PO Q8H PRN (Reason: pain) Qty: 30 RF: 0 ibuprofen 800 mg tablet 400 - 800 mg PO TID PRN (Reason: pain) Qty: 40 RF: 0 Discharge Instructions Instructions: Toothache (ED) Additional Instructions: I recommend you begin 2-3 times daily oral hygiene rinse such as Listerine or nonalcohol-based mouth rinse. May use Tylenol and/or the prescribed ibuprofen as needed for pain. Take clindamycin as prescribed. I recommend you take an [id number] probiotic while on this medication to preserve gut bayron. Follow-up with dentistry as you have planned. Return to the ER for any acute concerns. Medical Decision Making 45-year-old male, diabetic, presents with recurrent right upper dental pain. He has numerous dental caries and broken teeth, he does have follow-up planned in May for dentistry. He has developing apical infection overlying tooth #8. There is not abscess or fluctuance. We will place him on clindamycin and he will follow-up with dentistry. He is stable for discharge. HPI General Mode of arrival: ambulatory . Date/Time Provider Initiated Documentation: 05/05/21 15:36 . Limitations to Documentation: no limitations . Information obtained by: patient . History of Present Illness 45 year old M presents to the emergency department with the chief complaint of Right upper dental pain, recurrent, described as mild, moderate and similar to prior episodes, Quality is described as dull and constant, and is localized to the mouth and right. Patient reports no radiation. Patient started experiencing this day(s) and it has been constant. No relieving factors improve symptom(s), No exacerbating factors reported . Patient did receive the following treatments prior to arrival, NSAID Related Data Home Medications Medication Instructions Recorded Confirmed clonazepam 0.5 mg tablet 0.5 mg PO BID PRN #10 tab 05/25/20 05/05/21 ibuprofen 600 mg tablet 600 mg PO Q8H PRN #30 tab 06/22/20 05/05/21 levalbuterol tartrate 45 2 inh INHALATION Q4H PRN #15 g 11/05/20 05/05/21 mcg/actuation aerosol inhaler metformin 500 mg tablet,extended See Rx Instructions PO BID #450 12/05/20 05/05/21 release 24 hr tab MDD 2,500mg per 24h pen needle, diabetic 32 gauge x #12 ea 12/06/20 05/05/21 5/32 blood sugar diagnostic #200 ea 12/11/20 05/05/21 lancets #200 ea 12/11/20 05/05/21 atorvastatin 10 mg tablet 10 mg PO QHS #90 tab 02/08/21 05/05/21 dulaglutide 1.5 mg/0.5 mL 1.5 mg SUBCUT QWEEK #8 ml 02/08/21 05/05/21 subcutaneous pen injector losartan 50 mg tablet 50 mg PO DAILY #90 tab 02/08/21 05/05/21 Electronic BP monitor #1 ea 02/11/21 05/05/21 ibuprofen 800 mg tablet 400 - 800 mg PO TID PRN #40 tab 04/03/21 05/05/21 clindamycin HCl 300 mg PO Q6H 12 Days #48 cap 05/05/21 ibuprofen 800 mg PO TID PRN #20 tab 05/05/21 Previous Rx's Medication Instructions Recorded clonazepam 0.5 mg tablet 0.5 mg PO BID PRN #10 tab 05/25/20 ibuprofen 600 mg tablet 600 mg PO Q8H PRN #30 tab 06/22/20 levalbuterol tartrate 45 2 inh INHALATION Q4H PRN #15 g 11/05/20 mcg/actuation aerosol inhaler metformin 500 mg tablet,extended See Rx Instructions PO BID #450 12/05/20 release 24 hr tab MDD 2,500mg per 24h pen needle, diabetic 32 gauge x #12 ea 12/06/20 blood sugar diagnostic #200 ea 12/11/20 lancets #200 ea 12/11/20 atorvastatin 10 mg tablet 10 mg PO QHS #90 tab 02/08/21 dulaglutide 1.5 mg/0.5 mL 1.5 mg SUBCUT QWEEK #8 ml 02/08/21 subcutaneous pen injector losartan 50 mg tablet 50 mg PO DAILY #90 tab 02/08/21 Electronic BP monitor #1 ea 02/11/21 ibuprofen 800 mg tablet 400 - 800 mg PO TID PRN #40 tab 04/03/21 clindamycin HCl 300 mg PO Q6H 12 Days #48 cap 05/05/21 ibuprofen 800 mg PO TID PRN #20 tab 05/05/21 Allergies Allergy/AdvReac Type Severity Reaction Status Date / Time albuterol AdvReac Mild Shakiness Verified 05/05/21 15:47 (xopenex effective) prednisone AdvReac Mild Emotionally Verified 05/05/21 15:47 labile General Stated Complaint: DentalOral ARABELLA: 4 Review of Systems Narrative: Recent course of antibiotics, none currently, no other complaints. Has dental follow-up in May. [facility] Medical History Anxiety about health RX Citalopram Chronic dental infection Diabetes mellitus, new onset Dx'ed 10/2020, 45yo; goal A1C <7% History of kidney stones History of sciatica RLE Obesity Vapes nicotine containing substance Surgical History No significant past surgical history Social History Smoking/Tobacco Use Status: Current every day Tobacco Type: cigarettes Tobacco: How many years used: 30 Smokeless tobacco user: chewing tobacco Counseling given: provider counseling Smoking risk assessment performed?: Yes Alcohol Intake: current Alcohol Intake frequency: a few times a month Drug use: Never Substance use type: does not use Household members: spouse and children Number of Children: 6 Communication Needs: None Do you need help understanding health information?: Rarely current occupation: Unemployed Sexually active: Yes Do you think of yourself as: straight/heterosexual Current gender identity: male Do you feel safe at home: Yes Do you feel safe in your relationship?: Yes Exam Narrative Exam Narrative: GEN: awake, alert, oriented 3. Pleasant, well groomed, interactive. HEAD: Normocephalic, atraumatic ENT: Mucous membranes moist, oropharynx with numerous broken teeth and dental caries, slightly tender overlying tooth 8 apically, no fluctuance, External ear exam unremarkable EYES: PERRL, EOMI NECK: Full ROM, no LENCHO, no menigismus CHEST/RESP: Nontender, clear to auscultation bilateral, no wheeze/rhonchi/rales CARDIOVASCULAR: RRR, no murmur, rub wendi. 2+ Rad pulse bilateral Neuro: Grossly normal neurologic exam, conversant, interactive. Psych: Speech fluent, thoughts congruent, affect normal Course Vital Signs Vital signs: Vital Signs Temperature 36.9 C 05/05/21 15:42 Pulse 88 05/05/21 15:42 Respiratory Rate 16 05/05/21 15:42 Blood Pressure 153/104 H 05/05/21 15:42 Pulse Oximetry 97 05/05/21 15:42 Temperature 36.9 C 05/05/21 15:42 Temperature Source Skin 05/05/21 15:42 Pulse 88 05/05/21 15:42 Respiratory Rate 16 05/05/21 15:42 Respiratory Effort Non-Labored 05/05/21 15:42 Blood Pressure 153/104 H 05/05/21 15:42 Blood Pressure Position Sitting 05/05/21 15:42 Pulse Oximetry 97 05/05/21 15:42 Oxygen Delivery Method Room Air 05/05/21 15:42 Oxygen Flow Rate 0 05/05/21 15:42 Pain Level 9 05/05/21 15:42
[2021-05-05] MEDS: Acetaminophen 500 MG TAB 1000 MG PO (16:18)
[2021-05-05] MEDS: Clindamycin 150 MG CAP, 12 CAPS/BTL 450 MG PO (16:18)
== END 2021-05-05 16:21 | disposition home or self-care (01) ==
PROVIDERS: Emergency Provider Emergency Medicine; PCP Nurse Practitioner Adult Health
DX: K04.7 Periapical abscess without sinus (principal)
CPT/HCPCS: 99283

== ENCOUNTER 2021-05-09 22:44 | Emergency (ER) | payer MEDICAID, SELFPAY ==
[2021-05-09 22:47] VITALS: BP 146/83; PULSE 88; RESP 18; TEMP 36.8; O2SAT 98
--- NOTE | 2021-05-09 23:07 | W.ED.GENAD ---
Discharge Plan Disposition Patient Disposition: HOME Condition: Stable Discharge Details Clinical Impression: Skin tag Primary Care Provider: Lori Merritt ED Provider: Donis Anaya Home Meds and New Rx's Prescriptions: Continued ibuprofen 600 mg tablet 600 mg PO Q8H PRN (Reason: pain) Qty: 30 RF: 0 metformin 500 mg tablet extended release 24 hr See Rx Instructions PO BID MDD 2,500mg per 24h Qty: 450 RF: 3 (DME) pen needle, diabetic [BD Ultra-Fine Yuli Pen Needle] 32 gauge x 5/32 needle See Rx Instructions .ROUTE .MEDSUPPLY Qty: 12 RF: 3 clonazepam 0.5 mg tablet 0.5 mg PO BID PRN (Reason: acute anxiety/panic) Qty: 10 RF: 0 levalbuterol tartrate [Xopenex HFA] 45 mcg/actuation HFA aerosol inhaler 2 inh inhalation Q4H PRN (Reason: shortness of breath or wheezing) Qty: 15 RF: 6 Trulicity 1.5 mg/0.5 mL pen injector 1.5 mg subcut QWEEK Qty: 8 RF: 1 losartan 50 mg tablet 50 mg PO DAILY Qty: 90 RF: 3 atorvastatin 10 mg tablet 10 mg PO QHS Qty: 90 RF: 3 ibuprofen 800 mg tablet 400 - 800 mg PO TID PRN (Reason: pain) Qty: 40 RF: 0 (DME) Blood Glucose Test Strip See Rx Instructions .MEDSUPPLY Qty: 200 RF: 0 (DME) lancets Misc See Rx Instructions .MEDSUPPLY Qty: 200 RF: 0 (DME) Electronic BP monitor See Rx Instructions .Route .MEDSUPPLY Qty: 1 RF: 0 clindamycin HCl 300 mg capsule 300 mg PO Q6H 12 Days Qty: 48 RF: 0 ibuprofen 800 mg tablet 800 mg PO TID PRN (Reason: pain) Qty: 20 RF: 0 Discharge Instructions Additional Instructions: I am referring you to surgery for definitive care of your skin tag. Please contact their office tomorrow to discuss your symptoms and need for outpatient reevaluation. Please watch for new or worsening symptoms and return to the ER for any concern Referrals: Zoe Crews DO [OSTEOPATHIC DOCTOR] - Medical Decision Making 45-year-old gentleman reports multiple skin tags but most concerned about the one on his left lower leg. Reports it looks like it is splitting and concerned that it may cause severe bleeding. Clinically he appears well, nontoxic. No evidence of active bleeding or infection. Discussed definitive care would likely come from excision through our surgical team. Will refer him to our surgical team. Patient has no additional questions or concerns and is comfortable with this plan. Standard discharge and return precautions provided. This documentation was generated using [employer] dictation system, please disregard any oddities of phrase or misspellings. HPI General Mode of arrival: ambulatory. Date/Time Provider Initiated Documentation: 05/09/21 22:50. Limitations to Documentation: no limitations. Information obtained by: patient. HPI Narrative: This is a 45-year-old man, past medical history of hyperlipidemia, diabetes, hypertension, presenting to the ER this evening for concern of a skin tag on his left lower extremity that has been present for approximately 5-6 years. Patient states that he has tried to use [id number] freezing medication, but this just made the skin tag split open did not take care of the problem. He noticed earlier today it looked like it was cracking and she was concerned that if he rolled over and accidentally struck the skin tag it could cause severe bleeding, causing him to bleed out. He reports that he has multiple skin tags across his body but this is the only one that really bothering him. He denies any fever, redness, active bleeding, numbness, tingling, weakness. He has never sought medical attention for this before. No additional questions or concerns. Related Data Home Medications Medication Instructions Recorded Confirmed clonazepam 0.5 mg tablet 0.5 mg PO BID PRN #10 tab 05/25/20 05/09/21 ibuprofen 600 mg tablet 600 mg PO Q8H PRN #30 tab 06/22/20 05/09/21 levalbuterol tartrate 45 2 inh INHALATION Q4H PRN #15 g 11/05/20 05/09/21 mcg/actuation aerosol inhaler metformin 500 mg tablet,extended See Rx Instructions PO BID #450 12/05/20 05/09/21 release 24 hr tab MDD 2,500mg per 24h pen needle, diabetic 32 gauge x #12 ea 12/06/20 05/05/21 blood sugar diagnostic #200 ea 12/11/20 05/05/21 lancets #200 ea 12/11/20 05/05/21 atorvastatin 10 mg tablet 10 mg PO QHS #90 tab 02/08/21 05/09/21 dulaglutide 1.5 mg/0.5 mL 1.5 mg SUBCUT QWEEK #8 ml 02/08/21 05/09/21 subcutaneous pen injector losartan 50 mg tablet 50 mg PO DAILY #90 tab 02/08/21 05/09/21 Electronic BP monitor #1 ea 02/11/21 05/05/21 ibuprofen 800 mg tablet 400 - 800 mg PO TID PRN #40 tab 04/03/21 05/09/21 clindamycin HCl 300 mg PO Q6H 12 Days #48 cap 05/05/21 05/09/21 ibuprofen 800 mg PO TID PRN #20 tab 05/05/21 05/09/21 Previous Rx's Medication Instructions Recorded clonazepam 0.5 mg tablet 0.5 mg PO BID PRN #10 tab 05/25/20 ibuprofen 600 mg tablet 600 mg PO Q8H PRN #30 tab 06/22/20 levalbuterol tartrate 45 2 inh INHALATION Q4H PRN #15 g 11/05/20 mcg/actuation aerosol inhaler metformin 500 mg tablet,extended See Rx Instructions PO BID #450 12/05/20 release 24 hr tab MDD 2,500mg per 24h pen needle, diabetic 32 gauge x #12 ea 12/06/20 blood sugar diagnostic #200 ea 12/11/20 lancets #200 ea 12/11/20 atorvastatin 10 mg tablet 10 mg PO QHS #90 tab 02/08/21 dulaglutide 1.5 mg/0.5 mL 1.5 mg SUBCUT QWEEK #8 ml 02/08/21 subcutaneous pen injector losartan 50 mg tablet 50 mg PO DAILY #90 tab 02/08/21 Electronic BP monitor #1 ea 02/11/21 ibuprofen 800 mg tablet 400 - 800 mg PO TID PRN #40 tab 04/03/21 clindamycin HCl 300 mg PO Q6H 12 Days #48 cap 05/05/21 ibuprofen 800 mg PO TID PRN #20 tab 05/05/21 Allergies Allergy/AdvReac Type Severity Reaction Status Date / Time albuterol AdvReac Mild Shakiness Verified 05/09/21 22:51 (xopenex effective) prednisone AdvReac Mild Emotionally Verified 05/09/21 22:51 labile General Stated Complaint: RashLesion ARABELLA: 4 Review of Systems Constitutional Constitutional: Denies fever(s) and Denies weakness Musculoskeletal Musculoskeletal: Denies arthralgias, Denies numbness and Denies tingling Integumentary/Breasts Skin/Breast: Denies erythema and Denies rash Neurologic Neurologic: Denies numbness, Denies tingling and Denies weakness Hematologic/Lymphatic Hematologic/Lymphatic: Denies easy bleeding and Denies easy bruising PFSH Medical History Anxiety about health RX Citalopram Chronic dental infection Diabetes mellitus, new onset Dx'ed 10/2020, 45yo; goal A1C <7% History of kidney stones History of sciatica RLE Obesity Vapes nicotine containing substance Surgical History No significant past surgical history Social History Smoking/Tobacco Use Status: Current every day Tobacco Type: cigarettes Tobacco: How many years used: 30 Smokeless tobacco user: chewing tobacco Counseling given: provider counseling Smoking risk assessment performed?: Yes Alcohol Intake: current Alcohol Intake frequency: holidays/special occasions only Drug use: Never Substance use type: does not use Household members: spouse and children Number of Children: 6 Communication Needs: None Do you need help understanding health information?: Rarely current occupation: Unemployed Sexually active: Yes Do you think of yourself as: straight/heterosexual Current gender identity: male Do you feel safe at home: Yes Do you feel safe in your relationship?: Yes Exam Const General: cooperative, healthy appearing, comfortable and no acute distress Orientation: alert and awake HENAR Head: normal to inspection, normocephalic and atraumatic Eyes Conjunctivae: conjunctivae normal Neck Neck: normal visual inspection, trachea midline and supple Resp Effort & Inspection: normal respiratory effort and able to speak in complete sentences Skin Full body images: 1. Patient has a 2 x 2 centimeter fleshy skin tag. There is no tenderness, bleeding, erythema, or warmth. No induration or fluctuance. Neuro, vascular, tendon intact Neuro General: patient alert, patient awake, moves all extremities and no focal motor deficits Sensory Exam: no sensory deficits noted Psych Appearance: grossly normal Mental Status: mental status grossly normal Course Vital Signs Vital signs: Vital Signs Temperature 36.8 C 05/09/21 22:47 Pulse 88 05/09/21 22:47 Respiratory Rate 18 05/09/21 22:47 Blood Pressure 146/83 H 05/09/21 22:47 Pulse Oximetry 98 05/09/21 22:47 Temperature 36.8 C 05/09/21 22:47 Temperature Source Temporal Artery Scan 05/09/21 22:47 Pulse 88 05/09/21 22:47 Respiratory Rate 18 05/09/21 22:47 Respiratory Effort Non-Labored 05/09/21 22:53 Blood Pressure 146/83 H 05/09/21 22:47 Blood Pressure Position Sitting 05/09/21 22:47 Pulse Oximetry 98 05/09/21 22:47 Oxygen Delivery Method Room Air 05/09/21 22:47 Oxygen Flow Rate 0 05/09/21 22:47 Pain Level 0 05/09/21 22:47
== END 2021-05-09 23:17 | disposition home or self-care (01) ==
PROVIDERS: Emergency Provider Physician Assistant; PCP Nurse Practitioner Adult Health
DX: L91.8 Other hypertrophic disorders of the skin (principal)
CPT/HCPCS: 99281; 99282

== ENCOUNTER 2021-12-06 10:37 | Emergency (ER) | payer MEDICAID, SELFPAY ==
[2021-12-06 10:42] VITALS: BP 119/83; PULSE 78; RESP 18; TEMP 36.6; O2SAT 97
--- NOTE | 2021-12-06 11:13 | W.ED.GENAD ---
Discharge Plan Disposition Patient Disposition: HOME Condition: Stable Discharge Details Clinical Impression: Cough Primary Care Provider: Lori Merritt ED Provider: Meredith Aldrich Home Meds and New Rx's Prescriptions: New benzonatate 100 mg capsule 100 mg PO BID-TID PRN (Reason: cough) Qty: 14 0RF Continued losartan 50 mg tablet 50 mg PO DAILY Qty: 90 3RF Rx Instructions: Blood pressure, diabetes and kidney protection atorvastatin 10 mg tablet 10 mg PO QHS Qty: 90 3RF Rx Instructions: Cholesterol and diabetes ibuprofen 800 mg tablet 400 - 800 mg PO TID PRN (Reason: pain) Qty: 40 0RF Rx Instructions: Take with food for pain associated with dental infection PRN sildenafil [Viagra] 50 mg tablet 25 - 50 mg PO DAILY PRN (Reason: sexual activity) Qty: 10 1RF Rx Instructions: administer 30 minutes to 4 hours before activity levalbuterol tartrate [Xopenex HFA] 45 mcg/actuation HFA aerosol inhaler 2 inh inhalation Q4H PRN (Reason: shortness of breath or wheezing) Qty: 15 6RF Rx Instructions: To replace Albuterol which made him shake 05/14/2020 metformin 500 mg tablet extended release 24 hr 500 mg PO DAILY Qty: 90 3RF Rx Instructions: Take with food; Dose reduction 10/28/2021 fluticasone propionate [Flonase Allergy Relief] 50 mcg/actuation spray,suspension 2 spray intranasal DAILY Qty: 16 12RF Rx Instructions: administer into each nostril for post-nasal drip Trulicity 1.5 mg/0.5 mL pen injector 1.5 mg subcut QWEEK Qty: 8 1RF No Action (DME) pen needle, diabetic [BD Ultra-Fine Yuli Pen Needle] 32 gauge x 5/32 needle See Rx Instructions .ROUTE .MEDSUPPLY Qty: 12 3RF Rx Instructions: Weekly with Trulicity for T2DM & Obesity (DME) lancets [facility] [place] See Rx Instructions .MEDSUPPLY Qty: 200 2RF Rx Instructions: As directed to check blood glucose BID. No insulin. Dispense covered brand. (DME) Blood Glucose Test Strip See Rx Instructions .MEDSUPPLY Qty: 200 2RF Rx Instructions: As directed to check blood glucose BID. No insulin. Dispense covered brand. Discharge Instructions Instructions: Acute Cough (ED) Additional Instructions: Prescription for cough tablet was sent to the pharmacy on file. Please take these as directed. Follow up with primary care provider in 3-5 days. Return to ED sooner if any worsening or concerns. Increase oral fluids. Please take Tylenol or Ibuprofen with food every 4-6 hours as needed for pain and swelling. Referrals: Lori Merritt IMMIGRATION CASE WORKER [Primary Care Provider] - 3 days Medical Decision Making 38-year-old male presents with nasal congestion and cough x1 week. Has had multiple negative COVID tests. Discussed home care with patient who verbalized understanding. Offered chest x-ray but patient declined at this time. He is requesting something for the cough, he does have a PCP appointment afternoon. He is speaking in full sentences no increased work of breathing lungs are clear to auscultation bilaterally. This text was generated using [employer] dictation system, please disregard any oddities of phrase or misspellings. Medical Records Medical records reviewed: Yes I reviewed the patient's medical records. HPI General Mode of arrival: ambulatory. Date/Time Provider Initiated Documentation: 12/06/21 10:38. Limitations to Documentation: no limitations. Information obtained by: patient, RN notes reviewed and old records reviewed. HPI Narrative: 38-year-old male presents to the ER with chief complaint of nasal congestion and cough productive of clear phlegm for the last week. Reports that he has had negative home COVID test. He does report that his family has similar symptoms. He is already vaccinated for COVID. He is a former smoker. He denies any nausea vomiting diarrhea no ear pain or throat pain denies any fever or chills. He is requesting some cough medicine. He reports he has been taking [id number] DayQuil and NyQuil with little to no relief. Related Data Home Medications Medication Instructions Recorded Confirmed pen needle, diabetic 32 gauge x #12 ea 12/06/20 10/28/21 (BD Ultra-Fine Yuli Pen Needle) atorvastatin 10 mg tablet 10 mg PO QHS #90 tabs 02/08/21 10/28/21 losartan 50 mg tablet 50 mg PO DAILY #90 tabs 02/08/21 10/28/21 ibuprofen 800 mg tablet 400 - 800 mg PO TID PRN pain #40 04/03/21 10/28/21 tabs fluticasone propionate 50 2 spray intranasal DAILY allergy 07/10/21 10/28/21 mcg/actuation nasal symptoms #16 grams spray,suspension (Flonase Allergy Relief) sildenafil 50 mg tablet (Viagra) 25 - 50 mg PO DAILY PRN sexual 07/22/21 10/28/21 activity #10 tabs dulaglutide 1.5 mg/0.5 mL 1.5 mg (0.5 mL) subcut QWEEK #8 mL 08/05/21 10/28/21 subcutaneous pen injector (Trulicity) blood sugar diagnostic (Blood #200 ea 10/28/21 10/28/21 Glucose Test strips) lancets #200 ea 10/28/21 10/28/21 levalbuterol tartrate 45 2 inh inhalation Q4H PRN shortness 10/28/21 10/28/21 mcg/actuation aerosol inhaler of breath or wheezing #15 grams (Xopenex HFA) metformin 500 mg tablet,extended 500 mg PO DAILY #90 tabs 10/28/21 10/28/21 release 24 hr benzonatate 100 mg capsule 100 mg PO BID-TID PRN cough #14 12/06/21 caps Previous Rx's Medication Instructions Recorded pen needle, diabetic 32 gauge x #12 ea 12/06/20 (BD Ultra-Fine Yuli Pen Needle) atorvastatin 10 mg tablet 10 mg PO QHS #90 tabs 02/08/21 losartan 50 mg tablet 50 mg PO DAILY #90 tabs 02/08/21 ibuprofen 800 mg tablet 400 - 800 mg PO TID PRN pain #40 04/03/21 tabs fluticasone propionate 50 2 spray intranasal DAILY allergy 07/10/21 mcg/actuation nasal symptoms #16 grams spray,suspension (Flonase Allergy Relief) sildenafil 50 mg tablet (Viagra) 25 - 50 mg PO DAILY PRN sexual 07/22/21 activity #10 tabs dulaglutide 1.5 mg/0.5 mL 1.5 mg (0.5 mL) subcut QWEEK #8 mL 08/05/21 subcutaneous pen injector (Trulicity) blood sugar diagnostic (Blood #200 ea 10/28/21 Glucose Test strips) lancets #200 ea 10/28/21 levalbuterol tartrate 45 2 inh inhalation Q4H PRN shortness 10/28/21 mcg/actuation aerosol inhaler of breath or wheezing #15 grams (Xopenex HFA) metformin 500 mg tablet,extended 500 mg PO DAILY #90 tabs 10/28/21 release 24 hr benzonatate 100 mg capsule 100 mg PO BID-TID PRN cough #14 12/06/21 caps Allergies Allergy/AdvReac Type Severity Reaction Status Date / Time albuterol AdvReac Mild Shakiness Verified 10/28/21 10:40 (xopenex effective) prednisone AdvReac Mild Emotionally Verified 10/28/21 10:40 labile General Stated Complaint: RespSymp ARABELLA: 4 Review of Systems All systems reviewed & are unremarkable except as noted in HPI and below Cardiovascular Cardiovascular: Denies dyspnea Respiratory Respiratory: Reports cough, Denies hemoptysis and Denies dyspnea PFSH All Active Problems (Updated 12/06/21 @ 11:17 by Meredith Aldrich) Cough (Acute) Erectile dysfunction (Acute) Vapes nicotine containing substance (Chronic) Diabetes mellitus, new onset (Chronic) Dx'ed 10/2020, 45yo; goal A1C <7% Elevated BP without diagnosis of hypertension (Chronic) Nicotine dependence (Chronic) H/O cigs & chew x25 years, currently chewing tobacco Obesity (Chronic) Medical History Anxiety about health RX Citalopram Chronic dental infection Cutaneous skin tags History of kidney stones History of sciatica RLE Odontalgia Surgical History No significant past surgical history Social History Smoking/Tobacco Use Status: Former Tobacco Use Tobacco: How many years used: 30 Smokeless tobacco user: chewing tobacco Counseling given: provider counseling Smoking risk assessment performed?: Yes Alcohol Intake: current Alcohol Intake frequency: holidays/special occasions only Drug use: Never Substance use type: does not use Household members: spouse and children Number of Children: 6 Communication Needs: None Do you need help understanding health information?: Rarely current occupation: Unemployed Sexually active: Yes Do you think of yourself as: straight/heterosexual Current gender identity: male Do you feel safe at home: Yes Do you feel safe in your relationship?: Yes Exam Narrative Exam Narrative: Constitutional: Alert and oriented x3. Appears stated age. Obese body habitus. Head: Normocephalic, no trauma. Eyes: Pupils PERRL, Red reflex noted, EOM's intact. Eyelids symmetrical without lesions, discharge, or swelling. ENT: Bilateral TM's WNL, External ear normal to inspection, no mastoid TTP, swelling, or erythema, Nasal turbinates WNL, no nasal discharge. Normal dentition, Posterior pharynx WNL, no exudate. Chest: RRR, Normal S1, S2, distal pulses intact. Resp: Lungs clear to auscultation bilaterally, no wheezes, rales, or rhonchi. Musculoskeletal: Normal gait, 5/5 strength to all four extremities. Skin: No suspicious rashes or lesions. Capillary refill less than 2 sec. Course Vital Signs Vital signs: Vital Signs Temperature 36.6 C 12/06/21 10:42 Pulse 78 12/06/21 10:42 Respiratory Rate 18 12/06/21 10:42 Blood Pressure 119/83 12/06/21 10:42 Pulse Oximetry 97 12/06/21 10:42 Temperature 36.6 C 12/06/21 10:42 Temperature Source Skin 12/06/21 10:42 Pulse 78 12/06/21 10:42 Respiratory Rate 18 12/06/21 10:42 Respiratory Effort 12/06/21 10:47 Blood Pressure 119/83 12/06/21 10:42 Blood Pressure Position Sitting 12/06/21 10:42 Pulse Oximetry 97 12/06/21 10:42 Oxygen Delivery Method Room Air 12/06/21 10:42 Oxygen Flow Rate 0 12/06/21 10:42 Pain Level 0 12/06/21 10:42
[2021-12-06 11:37] VITALS: BP 122/85; PULSE 73; RESP 22; TEMP 36.8; O2SAT 97
== END 2021-12-06 11:26 | disposition home or self-care (01) ==
PROVIDERS: Emergency Provider Registered Nurse Emergency; PCP Nurse Practitioner Adult Health
DX: R05.1 Acute cough (principal)
CPT/HCPCS: 99283

== ENCOUNTER 2022-04-21 04:27 | Outpatient (CLI) | payer MEDICAID, SELFPAY ==
[2022-04-21 09:54] LABS: Hemoglobin A1C 5.7 % (<5.7)
[2022-04-21 09:56] LABS: ALT 39 U/L (16-63); AST 20 U/L (15-37); Albumin 3.8 g/dL (3.4-5.0); Alkaline Phosphatase 138 U/L (46-116); BUN 14 mg/dL (7-18); Bilirubin, Total 0.2 mg/dL (0.2-1.0); CREATININE 1.1 mg/dL (0.70-1.30); Calcium 9.2 mg/dL (8.5-10.1); Calculated LDL 72 mg/dL (<100); Chloride 105 mmol/L (98-107); Cholesterol 137 mg/dL (<200); Estimated GFR 82.81 (mL/min/1.73m2); Glucose 104 mg/dL (74-106); HDL Cholesterol 37 mg/dL (40-60); Potassium 4.1 mmol/L (3.5-5.1); Sodium 141 mmol/L (136-145); Total Protein 7.2 g/dL (6.4-8.2); Triglyceride 141 mg/dL (<150)
[2022-04-21 09:57] LABS: COMMENT (LAB VIEW ONLY) 46.37 mg/dL; Microalb ug/mg Crea 16.4 ug/mg Cr
== END 2022-04-21 04:28 | disposition home or self-care (01) ==
LOC: LBO 04:27
PROVIDERS: PCP Nurse Practitioner Adult Health; Visit Provider Nurse Practitioner Adult Health
DX: E11.9 Type 2 diabetes mellitus without complications (principal); F17.220 Nicotine dependence, chewing tobacco, uncomplicated; E66.01 Morbid (severe) obesity due to excess calories; Z68.41 Body mass index [BMI] 40.0-44.9, adult; Z72.0 Tobacco use
CPT/HCPCS: 36415; 80053; 80061; 82043; 82570; 83036

== ENCOUNTER 2022-05-13 22:04 | Emergency (ER) | payer MEDICAID, SELFPAY ==
[2022-05-13 22:19] VITALS: BP 143/99; PULSE 86; RESP 16; TEMP 36.1; O2SAT 98
--- NOTE | 2022-05-13 22:53 | W.ED.GENAD ---
Discharge Plan Disposition Patient Disposition: HOME Condition: Stable Discharge Details Clinical Impression: Pain, dental Primary Care Provider: Lori Merritt ED Provider: Derikc Hurley Home Meds and New Rx's Prescriptions: New clindamycin HCl 300 mg capsule 300 mg PO QID 5 Days Qty: 20 0RF ibuprofen 800 mg tablet 800 mg PO BID PRN (Reason: pain) Qty: 10 0RF No Action (DME) pen needle, diabetic [BD Ultra-Fine Yuli Pen Needle] 32 gauge x 5/32 needle See Rx Instructions .ROUTE .MEDSUPPLY Qty: 12 3RF Rx Instructions: Weekly with Trulicity for T2DM & Obesity ibuprofen 800 mg tablet 400 - 800 mg PO TID PRN (Reason: pain) Qty: 40 0RF Rx Instructions: Take with food for pain associated with dental infection PRN sildenafil [Viagra] 50 mg tablet 25 - 50 mg PO DAILY PRN (Reason: sexual activity) Qty: 10 1RF Rx Instructions: administer 30 minutes to 4 hours before activity levalbuterol tartrate [Xopenex HFA] 45 mcg/actuation HFA aerosol inhaler 2 inh inhalation Q4H PRN (Reason: shortness of breath or wheezing) Qty: 15 6RF Rx Instructions: To replace Albuterol which made him shake 05/14/2020 Trulicity 3 mg/0.5 mL pen injector 3 mg subcut QWEEK Qty: 6 0RF Rx Instructions: Diabetes & obesity fluticasone propionate [Flonase Allergy Relief] 50 mcg/actuation spray,suspension 2 spray intranasal DAILY Qty: 16 12RF Rx Instructions: administer into each nostril for post-nasal drip (DME) blood-glucose meter Misc See Rx Instructions .Route Qty: 1 0RF Rx Instructions: Dispense One Touch, to check BS daily,for DMII to keep A1c at or below 7.0 (DME) Blood Glucose Test Strip See Rx Instructions .MEDSUPPLY Qty: 100 3RF Rx Instructions: As directed to check blood glucose daily. No insulin. Dispense One Touch. (DME) lancets Misc See Rx Instructions .MEDSUPPLY Qty: 100 3RF Rx Instructions: As directed to check blood glucose daily. No insulin. Dispense One Touch. losartan 50 mg tablet 50 mg PO DAILY Qty: 90 3RF Rx Instructions: Blood pressure, diabetes and kidney protection atorvastatin 10 mg tablet 10 mg PO QHS Qty: 90 3RF Rx Instructions: Cholesterol and diabetes Discharge Instructions Instructions: Toothache (ED) Additional Instructions: Please follow-up with dentist as soon as possible. Please take medications as prescribed. Return to the emergency department for any worsening symptoms. Medical Decision Making 46-year-old male presents with acute on chronic dental pain, chronic poor dentition, is currently working to get into see a dentist. Afebrile nontoxic tolerating secretions. No apical fluctuance or submental submandibular or sublingual induration to suggest deep space infection of head or neck. Offered to start patient on Augmentin however he endorses that clindamycin is worked better in the past. Will prescribe clindamycin. Will start on ibuprofen. Home care instructions and return precautions given HPI General Date/Time Provider Initiated Documentation: 05/13/22 22:25. HPI Narrative: 46-year-old male history of chronic poor dentition, presents with acute on chronic left upper tooth pain. Denies fevers chills nausea or vomiting. Has had to put his dental care on hold due to some family issues. Related Data Home Medications Medication Instructions Recorded Confirmed pen needle, diabetic 32 gauge x #12 ea 12/06/20 05/13/22 (BD Ultra-Fine Yuli Pen Needle) ibuprofen 800 mg tablet 400 - 800 mg PO TID PRN pain #40 04/03/21 05/13/22 tabs fluticasone propionate 50 2 spray intranasal DAILY allergy 07/10/21 05/13/22 mcg/actuation nasal symptoms #16 grams spray,suspension (Flonase Allergy Relief) sildenafil 50 mg tablet (Viagra) 25 - 50 mg PO DAILY PRN sexual 07/22/21 05/13/22 activity #10 tabs levalbuterol tartrate 45 2 inh inhalation Q4H PRN shortness 10/28/21 05/13/22 mcg/actuation aerosol inhaler of breath or wheezing #15 grams (Xopenex HFA) blood-glucose meter #1 ea 12/09/21 05/13/22 blood sugar diagnostic (Blood #100 ea 12/18/21 05/13/22 Glucose Test strips) lancets #100 ea 12/18/21 05/13/22 losartan 50 mg tablet 50 mg PO DAILY #90 tabs 02/06/22 05/13/22 atorvastatin 10 mg tablet 10 mg PO QHS #90 tabs 02/24/22 05/13/22 dulaglutide 3 mg/0.5 mL 3 mg (0.5 mL) subcut QWEEK #6 mL 04/28/22 05/13/22 subcutaneous pen injector (Trulicity) clindamycin HCl 300 mg capsule 300 mg PO QID 5 days #20 caps 05/13/22 ibuprofen 800 mg tablet 800 mg PO BID PRN pain #10 tabs 05/13/22 Previous Rx's Medication Instructions Recorded pen needle, diabetic 32 gauge x #12 ea 12/06/20 (BD Ultra-Fine Yuli Pen Needle) ibuprofen 800 mg tablet 400 - 800 mg PO TID PRN pain #40 04/03/21 tabs fluticasone propionate 50 2 spray intranasal DAILY allergy 07/10/21 mcg/actuation nasal symptoms #16 grams spray,suspension (Flonase Allergy Relief) sildenafil 50 mg tablet (Viagra) 25 - 50 mg PO DAILY PRN sexual 07/22/21 activity #10 tabs levalbuterol tartrate 45 2 inh inhalation Q4H PRN shortness 10/28/21 mcg/actuation aerosol inhaler of breath or wheezing #15 grams (Xopenex HFA) blood-glucose meter #1 ea 12/09/21 blood sugar diagnostic (Blood #100 ea 12/18/21 Glucose Test strips) lancets #100 ea 12/18/21 losartan 50 mg tablet 50 mg PO DAILY #90 tabs 02/06/22 atorvastatin 10 mg tablet 10 mg PO QHS #90 tabs 02/24/22 dulaglutide 3 mg/0.5 mL 3 mg (0.5 mL) subcut QWEEK #6 mL 04/28/22 subcutaneous pen injector (Trulicity) clindamycin HCl 300 mg capsule 300 mg PO QID 5 days #20 caps 05/13/22 ibuprofen 800 mg tablet 800 mg PO BID PRN pain #10 tabs 05/13/22 Allergies Allergy/AdvReac Type Severity Reaction Status Date / Time albuterol AdvReac Mild Shakiness Verified 05/13/22 22:22 (xopenex effective) prednisone AdvReac Mild Emotionally Verified 05/13/22 22:22 labile General Stated Complaint: DentalOral ARABELLA: 4 Review of Systems Narrative: Review of Systems Constitutional: negative Eyes: negative ENT: Dental pain Cardiovascular: negative Respiratory: negative Gastrointestinal: negative : negative Musculoskeletal: negative Skin: negative Neurologic: negative Psych: negative PFSH All Active Problems (Updated 05/13/22 @ 22:56 by Derick Hurley MD) Pain, dental (Acute) Erectile dysfunction (Acute) Diabetes mellitus, new onset (Chronic ~10/2020) Dx'ed 10/2020, 45yo; goal A1C <7% Elevated BP without diagnosis of hypertension (Chronic) Nicotine dependence (Chronic) H/O cigs & chew x25 years, currently chewing tobacco Obesity (Chronic) Medical History Anxiety about health RX Citalopram Chronic dental infection Cutaneous skin tags History of kidney stones History of sciatica RLE Odontalgia Vapes nicotine containing substance Surgical History No significant past surgical history Family History (Updated 04/28/22 @ 11:03 by Lori Merritt NP) Mother , Murdered Diabetes Father Alcohol use disorder Social History Smoking/Tobacco Use Status: Current every day Tobacco Type: cigarettes Tobacco: How many years used: 30 Smokeless tobacco user: chewing tobacco Quit status: has quit before Counseling given: provider counseling Smoking risk assessment performed?: Yes Alcohol Intake: current Alcohol Intake frequency: holidays/special occasions only Drug use: Never Substance use type: does not use Adopted: No Caregiver/Support person: No Foster care: No Household members: spouse and children Number of Children: 6 Communication Needs: None Education Level: high school Do you need help understanding health information?: Rarely 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 Pets and animals: Yes Pets and animals: dog(s) and other Details: Bearded Lizethon Sexually active: Yes Do you think of yourself as: straight/heterosexual Current gender identity: male What is your relationship status?: How often do you talk on the phone with friends or family?: three or more times per week How often do you get together with friends or relatives?: once per week How often do you attend sikhism or congregational services?: decline to answer Do you belong to any clubs or organized social groups?: decline to answer Panel score (0-1 are the most socially isolated patients): 2 What type of physical activity do you participate in: regular exercise Duration: > 90 minutes/day Frequency: daily Seatbelt use: always Helmet use: Yes Drive intox or ride w/intox lifter driver: No Do you feel safe at home: Yes Do you feel safe in your relationship?: Yes Exam Narrative Exam Narrative: Physical Examination General: alert, awake, cooperative, resting comfortably, no acute distress HEENT: Multiple carious teeth, no evidence of periapical abscess or deep space infection;normocephalic, atraumatic; PERRL, EOM intact, conjunctiva normal; no nasal discharge; moist mucous membranes, oral and pharyngeal mucosa normal, tolerating secretions Neck: supple, trachea midline; full ROM Chest: normal to inspection Respiratory: normal respiratory effort, speaking in full sentences, clear to auscultation, no wheezing, rales or rhonchi Cardiac: regular rate, regular rhythm, S1S2 intact, no murmurs rubs or gallops GI: abdomen soft, non-tender, non-distended; no palpable mass or hepatosplenomegaly Skin: no lesions, rashes or trauma appreciated Neuro: AAOx3, normal speech, moving all extremities Psych: Appropriate mood and affect Course Vital Signs Vital signs: Vital Signs Temperature 36.1 C L 05/13/22 22:19 Pulse 86 05/13/22 22:19 Respiratory Rate 16 05/13/22 22:19 Blood Pressure 143/99 H 05/13/22 22:19 Pulse Oximetry 98 05/13/22 22:19 Temperature 36.1 C L 05/13/22 22:19 Temperature Source Tympanic 05/13/22 22:19 Pulse 86 05/13/22 22:19 Respiratory Rate 16 05/13/22 22:19 Respiratory Effort 05/13/22 22:19 Blood Pressure 143/99 H 05/13/22 22:19 Blood Pressure Position Sitting 05/13/22 22:19 Pulse Oximetry 98 05/13/22 22:19 Oxygen Delivery Method Room Air 05/13/22 22:19 Oxygen Flow Rate 0 05/13/22 22:19 Pain Level 4 05/13/22 22:22
[2022-05-13] MEDS: Ibuprofen 800 MG TAB PO (23:00)
[2022-05-13] MEDS: Clindamycin 300 MG CAP PO (23:00)
== END 2022-05-13 23:18 | disposition home or self-care (01) ==
PROVIDERS: Emergency Provider Emergency Medicine; PCP Nurse Practitioner Adult Health
DX: K02.9 Dental caries, unspecified (principal)
CPT/HCPCS: 99283

== ENCOUNTER 2022-07-28 21:12 | Emergency (ER) | payer MEDICAID, SELFPAY ==
[2022-07-28] VITALS (25 sets, daily range): BP systolic 121–154; BP diastolic 71–90; PULSE 79–94; RESP 12–21; TEMP 36; O2SAT 95–98
--- NOTE | 2022-07-28 21:00 | RT.EKG_ITS ---
APPROVED REPORT Exam: Resting ECG Reason for Exam: chest pain Patient Location: E HR:87 bpm ECG Measurements Heart Rate 87 AXIS MT 158 P 4 QRSd 118 QRS -19 QT 370 T 21 QTc 445 Conclusion Sinus rhythm...normal P axis, V-rate 60- 99 Nonspecific intraventricular conduction delay...QRSd >115mS, not LBBB/RBBB
--- NOTE | 2022-07-28 21:30 | DI.RAD_ITS ---
Exam(s) XR PORTABLE CHEST AP EXAM: XR PORTABLE CHEST AP CLINICAL HISTORY: chest pain TECHNIQUE: 2D digital imaging was performed of the chest. One image was obtained. An AP view was ob tained. COMPARISON: CR,XR XR PORTABLE CHEST AP from 04/21/2020 FINDINGS: MEDIASTINUM: Normal. HEART: Normal. PULMONARY VASCULATURE: Normal. LUNGS: Clear. PLEURAL SPACE: No pleural effusion or pneumothorax. BONE:Within normal limits for the patient's age. OTHER FINDINGS:Normal. IMPRESSION: No acute pulmonary findings. DATA REPOSITORY: RADIATION DOSE DELIVERED:
--- NOTE | 2022-07-28 21:33 | ED.GENADUL_ITS ---
Discharge Plan Disposition Patient Disposition: Against Medical Advice Condition: Stable Discharge Details Clinical Impression: Chest pain Primary Care Provider: Lori Merritt ED Provider: Claudio Whitman Home Meds and New Rx's Prescriptions: Continued (DME) pen needle, diabetic [BD Ultra-Fine Yuli Pen Needle] 32 gauge x 5/32 needle See Rx Instructions .ROUTE .MEDSUPPLY Qty: 12 3RF Rx Instructions: Weekly with Trulicity for T2DM & Obesity levalbuterol tartrate [Xopenex HFA] 45 mcg/actuation HFA aerosol inhaler 2 inh inhalation Q4H PRN (Reason: shortness of breath or wheezing) Qty: 15 6RF Rx Instructions: To replace Albuterol which made him shake 05/14/2020 fluticasone propionate [Flonase Allergy Relief] 50 mcg/actuation spray,suspension 2 spray intranasal DAILY Qty: 16 12RF Rx Instructions: administer into each nostril for post-nasal drip (DME) blood-glucose meter Misc See Rx Instructions .Route Qty: 1 0RF Rx Instructions: Dispense One Touch, to check BS daily,for DMII to keep A1c at or below 7.0 (DME) Blood Glucose Test Strip See Rx Instructions .MEDSUPPLY Qty: 100 3RF Rx Instructions: As directed to check blood glucose daily. No insulin. Dispense One Touch. (DME) lancets Misc See Rx Instructions .MEDSUPPLY Qty: 100 3RF Rx Instructions: As directed to check blood glucose daily. No insulin. Dispense One Touch. losartan 50 mg tablet 50 mg PO DAILY Qty: 90 3RF Rx Instructions: Blood pressure, diabetes and kidney protection atorvastatin 10 mg tablet 10 mg PO QHS Qty: 90 3RF Rx Instructions: Cholesterol and diabetes Trulicity 3 mg/0.5 mL pen injector See Rx Instructions .ROUTE .COMPLEX Qty: 6 0RF Dose Instruction: INJECT 3MG (0.5ML) SUBCUTANEOUSLY EVERY WEEK Rx Instructions: INJECT 3MG (0.5ML) SUBCUTANEOUSLY EVERY WEEK Discharge Instructions Instructions: Chest Pain (ED) Additional Instructions: Follow up with your primary care provider as soon as possible if you feel more ill, have worsening pain or difficulty breathing return to the emergency department Medical Decision Making 46 yo male with hx of dm, hld, htn, who comes in with an episode of chest tightness. HE states he has had subjective numbness intermittently in his left arm the past week. Tonight he had an episode where he felt tightness in the chest. Denies diaphoresis, dyspnea, radiation of pain. no pain with exertion. He states he has no symptoms now. He arrives stable, appears well in no distress. HE has clear lung sounds, no murmurs, no jvd, no leg swelling or calf tenderness. Unclear etiology for his symptoms. He does state he has been under a lot of stress recently which could be contributing but will further evaluate with troponin and cxr. HE has no tachycardia or hypoxia or evidence of dvt on exam so doubt PE. No tearing back pain so doubt dissection. labs and imaging unremarkable, he is stable in no distress, will obtain delta troponin patient is declining to stay for his second troponin and further observation. HE has decision making capacity and understands the risks of leaving and missing an PR including and permanent disability. He is willing to accept these risks and is leaving against medical advise. He was advised to f/u with his pcp teddy and that he can return at any time if he changes his mind Differential Diagnosis Differential Diagnosis: nstemi, angina, chest wall pain, stress Imaging Data Radiologic Study: Attestation: I personally reviewed and interpreted this imaging study as follows: Imaging: X-Ray Radiologist's impression: no acute findings Lab Data Lab results reviewed: Yes I reviewed the patient's lab results. ECG Data Attestation: I personally reviewed and interpreted this ECG (s) as follows: Prior ECG tracings: not available for review Interpretation: sinus rhythm, rate of 87, pr 158, no acute st t wave ischemic findings HPI General Mode of arrival: ambulatory . Date/Time Provider Initiated Documentation: 07/28/22 21:13 . Limitations to Documentation: no limitations . Information obtained by: patient . History of Present Illness 46 year old M presents to the emergency department with the chief complaint of chest tig htness, described as moderate, and it has been constant. No relieving factors improve symptom(s), No exacerbating factors reported . Patient notes denies fever/chills. Patient did receive the following treatments prior to arrival, none Related Data Home Medications Medication Instructions Recorded Confirmed pen needle, diabetic 32 gauge x #12 ea 12/06/20 07/28/22 (BD Ultra-Fine Yuli Pen Needle) fluticasone propionate 50 2 spray intranasal DAILY allergy 07/10/21 07/28/22 mcg/actuation nasal symptoms #16 grams spray,suspension (Flonase Allergy Relief) levalbuterol tartrate 45 2 inh inhalation Q4H PRN shortness 10/28/21 07/28/22 mcg/actuation aerosol inhaler of breath or wheezing #15 grams (Xopenex HFA) blood-glucose meter #1 ea 12/09/21 07/28/22 blood sugar diagnostic (Blood #100 ea 12/18/21 07/28/22 Glucose Test strips) lancets #100 ea 12/18/21 07/28/22 losartan 50 mg tablet 50 mg PO DAILY #90 tabs 02/06/22 07/28/22 atorvastatin 10 mg tablet 10 mg PO QHS #90 tabs 02/24/22 07/28/22 dulaglutide 3 mg/0.5 mL See Rx Instructions .Route 07/23/22 07/28/22 subcutaneous pen injector .COMPLEX #6 mL (Trulicity) Previous Rx's Medication Instructions Recorded pen needle, diabetic 32 gauge x #12 ea 12/06/20/32 (BD Ultra-Fine Yuli Pen Needle) fluticasone propionate 50 2 spray intranasal DAILY allergy 07/10/21 mcg/actuation nasal symptoms #16 grams spray,suspension (Flonase Allergy Relief) levalbuterol tartrate 45 2 inh inhalation Q4H PRN shortness 10/28/21 mcg/actuation aerosol inhaler of breath or wheezing #15 grams (Xopenex HFA) blood-glucose meter #1 ea 12/09/21 blood sugar diagnostic (Blood #100 ea 12/18/21 Glucose Test strips) lancets #100 ea 12/18/21 losartan 50 mg tablet 50 mg PO DAILY #90 tabs 02/06/22 atorvastatin 10 mg tablet 10 mg PO QHS #90 tabs 02/24/22 dulaglutide 3 mg/0.5 mL See Rx Instructions .Route 07/23/22 subcutaneous pen injector .COMPLEX #6 mL (Trulicity) Allergies Allergy/AdvReac Type Severity Reaction Status Date / Time albuterol AdvReac Mild Shakiness Verified 05/13/22 22:22 (xopenex effective) prednisone AdvReac Mild Emotionally Verified 05/13/22 22:22 labile General Stated Complaint: Chest Pain ARABELLA: 2 Review of Systems All systems reviewed & are unremarkable except as noted in HPI and below Constitutional Constitutional: Denies chills, Denies fever(s) and Denies weakness Cardiovascular Cardiovascular: Denies dyspnea Respiratory Respiratory: Denies cough and Denies dyspnea Gastrointestinal Gastrointestinal: Denies abdominal pain, Denies nausea and Denies vomiting Genitourinary Genitourinary: Denies dysuria Musculoskeletal Musculoskeletal: Denies joint swelling Integumentary/Breasts Skin/Breast: Denies rash Neurologic Neurologic: Denies weakness PFSH All Active Problems (Updated 07/28/22 @ 22:27 by Claudio Whitman MD) Chest pain (Acute) Skin lesion (Acute) Erectile dysfunction (Acute) Diabetes mellitus, new onset (Chronic ~10/2020) Dx'ed 10/2020, 45yo; goal A1C <7% Elevated BP without diagnosis of hypertension (Chronic) Nicotine dependence (Chronic) H/O cigs & chew x25 years, currently chewing tobacco Obesity (Chronic) Medical History Anxiety about health RX Citalopram Chronic dental infection Cutaneous skin tags History of kidney stones History of sciatica RLE Odontalgia Vapes nicotine containing substance Surgical History No significant past surgical history Family History (Updated 04/28/22 @ 11:03 by Lori Merritt NP) Mother , Murdered Diabetes Father Alcohol use disorder Social History Smoking/Tobacco Use Status: Current every day Tobacco Type: e-cigarettes Tobacco: How many years used: 30 Smokeless tobacco user: chewing tobacco Quit status: has quit before Counseling given: provider counseling Smoking risk assessment performed?: Yes Alcohol Intake: current Alcohol Intake frequency: holidays/special occasions only Drug use: Never Substance use type: does not use Adopted: No Caregiver/Support person: No Foster care: No Household members: spouse and children Number of Children: 6 Communication Needs: None Education Level: high school Do you need help understanding health information?: Rarely current occupation: Self Employed-Visiting Professor Pets and animals: Yes Pets and animals: dog(s) and other Details: Bearded Dragon Sexually active: Yes Do you think of yourself as: straight/heterosexual Current gender identity: male What is your relationship status?: How often do you talk on the phone with friends or family?: three or more times per week How often do you get together with friends or relatives?: once per week How often do you attend rastafari or episcopal services?: decline to answer Do you belong to any clubs or organized social groups?: decline to answer Panel score (0-1 are the most socially isolated patients): 2 What type of physical activity do you participate in: regular exercise Duration: > 90 minutes/day Frequency: daily Seatbelt use: always Helmet use: Yes Drive intox or ride w/intox local company flatbed truck driver: No Do you feel safe at home: Yes Do you feel safe in your relationship?: Yes Exam Const General: no acute distress Orientation: alert HENMI Head: normal to inspection Ears: external ears normal General nose exam: external nose normal Mouth: moist mucous membranes Eyes General: appearance normal, both eyes and all related structures Neck Neck: normal visual inspection Resp Effort & Inspection: normal respiratory effort and able to speak in complete sentences Auscultation: clear to auscultation bilaterally Cardio Rate: regular rate Heart Sounds: no murmurs GI Palpation: soft Skin General skin exam: no rashes or lesions noted Neuro General: patient alert and patient oriented x3 Extrem General: normal to inspection Psych Mental Status: mental status grossly normal Course Vital Signs Vital signs: Vital Signs Pulse 94 H 07/28/22 21:18 Respiratory Rate 18 07/28/22 21:18 Blood Pressure 154/90 H 07/28/22 21:18 Pulse Oximetry 97 07/28/22 21:18 Pulse 94 H 07/28/22 21:18 Respiratory Rate 18 07/28/22 21:18 Respiratory Effort 07/28/22 21:22 Blood Pressure 154/90 H 07/28/22 21:18 Blood Pressure Position Sitting 07/28/22 21:18 Pulse Oximetry 97 07/28/22 21:18 Oxygen Delivery Method Room Air 07/28/22 21:18 Oxygen Flow Rate 0 07/28/22 21:18 Pain Level 5 07/28/22 21:18 Comment 07/28/22 21:18
[2022-07-28 21:37] LABS: Abs Immature Grans 0.03 10^3/uL (0.0-0.06); Absolute Basophil Count 0.07 10^3/uL (0.0-0.2); Absolute Eosinophil Count 0.27 10^3/uL (0.0-0.7); Absolute Lymphocyte Count 1.33 10^3/uL (1.2-3.4); Absolute Monocyte Count 1.02 10^3/uL (0.1-0.8); Absolute Neutrophil Count 8.56 10^3/uL (1.2-6.7); Basophils % 0.6; Eosinophils % 2.4; HGB 15.6 g/dL (13.5-17.5); Immature Grans % 0.3; Lymphocytes % 11.8; MCHC 33.9 % (32.0-36.0); MCV 89 fL (80-95); MPV 11.1 fL (8.0-11.0); Neutrophils % 75.9; Platelet Count 245 10^3/uL (130-400); RDW 12.4 % (11.8-14.1); RDW-SD 40.3 fL; WBC 11.28 10^3/uL (4.4-10.8)
[2022-07-28 21:54] LABS: ALT 44 U/L (16-63); AST 22 U/L (15-37); Albumin 4.2 g/dL (3.4-5.0); Alkaline Phosphatase 130 U/L (46-116); Anion Gap 7.2 mmol/L (3-11); BUN 16 mg/dL (7-18); Bilirubin, Total 0.4 mg/dL (0.2-1.0); CO2 28.8 mmol/L (21.0-32.0); CREATININE 1.1 mg/dL (0.70-1.30); Calcium 9.3 mg/dL (8.5-10.1); Chloride 103 mmol/L (98-107); Estimated GFR 82.81 (mL/min/1.73m2); Glucose 91 mg/dL (74-106); Potassium 4.1 mmol/L (3.5-5.1); Sodium 139 mmol/L (136-145); Total Protein 7.9 g/dL (6.4-8.2)
[2022-07-28 22:08] LABS: Lipase 136 U/L (73-393); Troponin I < 50 ng/L (<or=60)
--- NOTE | 2022-07-28 22:49 | DI.VRAD_ITS ---
PROCEDURE INFORMATION: Exam: XR Chest Exam date and time: 07/28/2022 9:19 PM Age: 46 years old Clinical indication: Chest pain TECHNIQUE: Imaging protocol: Radiologic exam of the chest. Views: 1 view. COMPARISON: CR XR CHEST 2V PA LATERAL 05/18/2020 11:05 AM FINDINGS: Lungs: No consolidation. Pleural spaces: No pleural effusion. No pneumothorax. Heart/Mediastinum: Unremarkable. No cardiomegaly. Bones/joints: Unremarkable. IMPRESSION: No acute findings. Dictated and Authenticated by: Lore Mckeon MD. Ordering:YUNG Snyder MD
--- NOTE | 2022-08-06 09:04 | NUR.NOTE ---
Nursing Note: Accessed chart to determine orders for EKG and to determine whether or not one needs to be cancelled.
== END 2022-07-28 22:40 | disposition left against medical advice (07) ==
PROVIDERS: Emergency Provider Emergency Medicine; PCP Nurse Practitioner Adult Health
DX: R07.89 Other chest pain (principal); I10 Essential (primary) hypertension; E11.9 Type 2 diabetes mellitus without complications; R20.0 Anesthesia of skin
CPT/HCPCS: 80053; 83690; 93005; 99283; 71045; 84484; 85025; 93010; 99285

== ENCOUNTER 2022-09-01 11:36 | Emergency (ER) | payer MEDICAID, SELFPAY ==
[2022-09-01] VITALS (23 sets, daily range): BP systolic 118–148; BP diastolic 80–102; PULSE 73–92; RESP 12–26; TEMP 36.8; O2SAT 98
--- NOTE | 2022-09-01 11:30 | RT.EKG_ITS ---
APPROVED REPORT Exam: Resting ECG Reason for Exam: chest pain Patient Location: E HR:77 bpm ECG Measurements Heart Rate 77 AXIS VT 151 P 11 QRSd 112 QRS -30 QT 371 T 30 QTc 420 Conclusion Sinus rhythm...normal P axis, V-rate 60- 99 Physician: no stemi
--- NOTE | 2022-09-01 12:20 | ED.GENADUL_ITS ---
Discharge Plan Disposition Patient Disposition: Home Condition: Good Discharge Details Clinical Impression: Chest pain Primary Care Provider: Lori Merritt ED Provider: Mak Graham Home Meds and New Rx's Prescriptions: Continued (DME) pen needle, diabetic [BD Ultra-Fine Yuli Pen Needle] 32 gauge x 5/32 needle See Rx Instructions .ROUTE .MEDSUPPLY Qty: 12 3RF Rx Instructions: Weekly with Trulicity for T2DM & Obesity levalbuterol tartrate [Xopenex HFA] 45 mcg/actuation HFA aerosol inhaler 2 inh inhalation Q4H PRN (Reason: shortness of breath or wheezing) Qty: 15 6RF Rx Instructions: To replace Albuterol which made him shake 05/14/2020 (DME) blood-glucose meter Misc See Rx Instructions .Route Qty: 1 0RF Rx Instructions: Dispense One Touch, to check BS daily,for DMII to keep A1c at or below 7.0 (DME) Blood Glucose Test Strip See Rx Instructions .MEDSUPPLY Qty: 100 3RF Rx Instructions: As directed to check blood glucose daily. No insulin. Dispense One Touch. (DME) lancets Misc See Rx Instructions .MEDSUPPLY Qty: 100 3RF Rx Instructions: As directed to check blood glucose daily. No insulin. Dispense One Touch. losartan 50 mg tablet 50 mg PO DAILY Qty: 90 3RF Rx Instructions: Blood pressure, diabetes and kidney protection atorvastatin 10 mg tablet 10 mg PO QHS Qty: 90 3RF Rx Instructions: Cholesterol and diabetes Trulicity 3 mg/0.5 mL pen injector See Rx Instructions .ROUTE .COMPLEX Qty: 6 0RF Dose Instruction: INJECT 3MG (0.5ML) SUBCUTANEOUSLY EVERY WEEK Rx Instructions: INJECT 3MG (0.5ML) SUBCUTANEOUSLY EVERY WEEK fluticasone propionate [Flonase Allergy Relief] 50 mcg/actuation spray,suspension 2 spray intranasal DAILY Qty: 16 12RF Rx Instructions: administer into each nostril for post-nasal drip Discharge Instructions Instructions: Chest Pain (ED) Additional Instructions: At this time your work-up has returned and is very reassuring. There is no evidence of heart attack, blood clot, or other significant abnormality. Please follow-up very closely with your primary care provider for further reassessment and differentiation of your current symptomatology. If you notice any worsening of your symptoms, or any new symptoms such as vomiting, diarrhea, fever, chills, shortness of breath, chest pain, numbness, weakness, or fainting , please return immediately to the emergency department for reevaluation. Please follow up with your primary care provider as soon as possible for reassessment and reevaluation. As always, it was a pleasure participating in your medical care today. Referrals: Lori Merritt [employer] [Primary Care Provider] - Medical Decision Making 47-year-old male with past medical history of high cholesterol, hypertension, type 2 diabetes, reactive airway disease, anxiety, who presents today for evaluation of chest pain. Patient has had intermittent chest pain which she describes as a heaviness and an occasional tightness in his left chest. It has been going on for the last 1 to 2 weeks. Currently states that he feels like an elephant is getting on and off his chest. He is very clear that that this is not exertional in nature. He denies any ripping or tearing sensation. Radiates to the right shoulder but not down the arm. He denies any vomiting or diarrhea. He denies any headache, syncope, or other complaints. He does have a history of tobacco use, but has not smoked for the past year or so. He does still vape and chew tobacco occasionally. He denies any history of cardiac disease personally, he denies any history of blood clots. No other complaints at this time. Physical exam demonstrates well-appearing male, no significant abnormalities. No significant reproducible chest wall tenderness. EKG is notably benign, no symptoms or EKG evidence to suggest STEMI. With the longevity of the patient's symptoms, I do feel that ACS is notably clinically unlikely. Precordial catch syndrome, pericarditis, musculoskeletal etiology is certainly of concern, GERD is also of concern. However because of his risk factors we will evaluate for concerning etiologies, get a D-dimer, monitor closely and reassess. 2:05 PM Laboratory work-up has returned notably unremarkable. EKG normal, troponin normal, D-dimer negative. Laboratory work-up benign. Symptoms notably inconsistent with ACS especially with their prolongation over the last week. No clinical evidence of dissection or aneurysm clinically. No evidence of pneumothorax. Patient notably stable. Symptoms appear inconsistent with cardiac etiology at this time. However out of an abundance of precaution I do feel that further outpatient nonemergent work-up is indicated at this time. Differential does still include mild GERD, musculoskeletal spasm, or other [id number] component. Discussed red flags which to return. Patient notably stable for discharge at this time with close outpatient follow-up. I have extensively reviewed the treatment plan and discharge instructions with the patient and their family. I have addressed all patient concerns at this time. The patient and family was made aware of what symptoms to monitor for that would warrant a return to the emergency department. Discussed the plan with the patient and family, they demonstrate verbal understanding and agreement with our assessment and plan at this time. The documentation in this chart was dictated using [employer] dictation software. Please excuse any dictation errors. FINDINGS: Exam limited by poor pulmonary inflation LUNGS: Clear. No pleural abnormality seen. HEART: Normal size. AORTA: Normal diameter. BONES: Unremarkable for age. Soft tissues: Unremarkable. IMPRESSION: No acute findings. HPI General Date/Time Provider Initiated Documentation: 09/01/22 11:39 . HPI Narrative: 47-year-old male with past medical history of high cholesterol, hypertension, type 2 diabetes, reactive airway disease, anxiety, who presents today for evaluation of chest pain. Patient has had intermittent chest pain which she describes as a heaviness and an occasional tightness in his left chest. It has been going on for the last 1 to 2 weeks. Currently states that he feels like an elephant is getting on and off his chest. He is very clear that that this is not exertional in nature. He denies any ripping or tearing sensation. Radiates to the right shoulder but not down the arm. He denies any vomiting or diarrhea. He denies any headache, syncope, or other complaints. He does have a history of tobacco use, but has not smoked for the past year or so. He does still vape and chew tobacco occasionally. He denies any history of cardiac disease personally, he denies any history of blood clots. No other complaints at this time. Related Data Home Medications Medication Instructions Recorded Confirmed pen needle, diabetic 32 gauge x #12 ea 12/06/20 09/01/22 (BD Ultra-Fine Yuli Pen Needle) levalbuterol tartrate 45 2 inh inhalation Q4H PRN shortness 10/28/21 09/01/22 mcg/actuation aerosol inhaler of breath or wheezing #15 grams (Xopenex HFA) blood-glucose meter #1 ea 12/09/21 09/01/22 blood sugar diagnostic (Blood #100 ea 12/18/21 09/01/22 Glucose Test strips) lancets #100 ea 12/18/21 09/01/22 losartan 50 mg tablet 50 mg PO DAILY #90 tabs 02/06/22 09/01/22 atorvastatin 10 mg tablet 10 mg PO QHS #90 tabs 02/24/22 09/01/22 dulaglutide 3 mg/0.5 mL See Rx Instructions .Route 07/23/22 09/01/22 subcutaneous pen injector .COMPLEX #6 mL (Trulicity) fluticasone propionate 50 2 spray intranasal DAILY allergy 08/06/22 09/01/22 mcg/actuation nasal symptoms #16 grams spray,suspension (Flonase Allergy Relief) Previous Rx's Medication Instructions Recorded pen needle, diabetic 32 gauge x #12 ea 12/06/2032 (BD Ultra-Fine Yuli Pen Needle) levalbuterol tartrate 45 2 inh inhalation Q4H PRN shortness 10/28/21 mcg/actuation aerosol inhaler of breath or wheezing #15 grams (Xopenex HFA) blood-glucose meter #1 ea 12/09/21 blood sugar diagnostic (Blood #100 ea 12/18/21 Glucose Test strips) lancets #100 ea 12/18/21 losartan 50 mg tablet 50 mg PO DAILY #90 tabs 02/06/22 atorvastatin 10 mg tablet 10 mg PO QHS #90 tabs 02/24/22 dulaglutide 3 mg/0.5 mL See Rx Instructions .Route 07/23/22 subcutaneous pen injector .COMPLEX #6 mL (Trulicity) fluticasone propionate 50 2 spray intranasal DAILY allergy 08/06/22 mcg/actuation nasal symptoms #16 grams spray,suspension (Flonase Allergy Relief) Allergies Allergy/AdvReac Type Severity Reaction Status Date / Time albuterol AdvReac Mild Shakiness Verified 09/01/22 11:44 (xopenex effective) prednisone AdvReac Mild Emotionally Verified 09/01/22 11:44 labile General Stated Complaint: Chest Pain ARABELLA: 3 Review of Systems All systems reviewed & are unremarkable except as noted in HPI and below PFSH All Active Problems (Updated 09/01/22 @ 14:04 by Mak Graham DO) Chest pain (Acute) Skin lesion (Acute) Erectile dysfunction (Acute) Diabetes mellitus, new onset (Chronic ~10/2020) Dx'ed 10/2020, 45yo; goal A1C <7% Elevated BP without diagnosis of hypertension (Chronic) Nicotine dependence (Chronic) H/O cigs & chew x25 years, currently chewing tobacco Obesity (Chronic) Medical History Anxiety about health RX Citalopram Chronic dental infection Cutaneous skin tags History of kidney stones History of sciatica RLE Odontalgia Vapes nicotine containing substance Surgical History No significant past surgical history Family History Mother , Murdered Diabetes Father Alcohol use disorder Social History Smoking/Tobacco Use Status: Current every day Tobacco Type: e-cigarettes Tobacco: How many years used: 30 Smokeless tobacco user: chewing tobacco Quit status: has quit before Counseling given: provider counseling Smoking risk assessment performed?: Yes Alcohol Intake: current Alcohol Intake frequency: holidays/special occasions only Drug use: Never Substance use type: does not use Adopted: No Caregiver/Support person: No Foster care: No Household members: spouse and children Number of Children: 6 Communication Needs: None Education Level: high school Do you need help understanding health information?: Rarely current occupation: Self Employed-[employer] Pets and animals: Yes Pets and animals: dog(s) and other Details: Bearded Christina Sexually active: Yes Do you think of yourself as: straight/heterosexual Current gender identity: male What is your relationship status?: How often do you talk on the phone with friends or family?: three or more times per week How often do you get together with friends or relatives?: once per week How often do you attend roman catholic or latter day services?: decline to answer Do you belong to any clubs or organized social groups?: decline to answer Panel score (0-1 are the most socially isolated patients): 2 What type of physical activity do you participate in: regular exercise Duration: > 90 minutes/day Frequency: daily Seatbelt use: always Helmet use: Yes Drive intox or ride w/intox driver wheelchair: No Do you feel safe at home: Yes Do you feel safe in your relationship?: Yes Exam Narrative Exam Narrative: 1.Const: Well-nourished, Well-developed, appearing stated age 2.Eyes: PERRL, no conjunctival injection, and symmetrical lids. 3.ENT: Atraumatic external nose and ears. Moist MM. Neck: Symmetric, trachea midline, No thyromegaly. 4.CVS: +S1/S2, No murmurs or gallops. Peripheral pulses 2+ and equal in all extremities. Brisk capillary refill in all extremities. 5.RESP: Unlabored respiratory effort. Clear to auscultation bilaterally. No wheezes rales or rhonchi 6.GI: Soft, Nontender/Nondistended, No hepatosplenomegaly. No guarding or rebound. 7.MSK: Normocephalic/Atraumatic, Extremities w/o deformity or ttp No cyanosis or clubbing, Normal movement of all extremities 8.Skin: Warm, Dry. No rashes or lesions. 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 Sensation grossly intact, no focal n eurologic deficits. 10.Psych: (AAO) x3. Appropriate mood and affect Course Vital Signs Vital signs: Vital Signs Temperature 36.8 C 09/01/22 11:41 Pulse 92 H 09/01/22 11:41 Respiratory Rate 18 09/01/22 11:41 Blood Pressure 148/102 H 09/01/22 11:41 Pulse Oximetry 98 09/01/22 11:41 Temperature 36.8 C 09/01/22 11:41 Temperature Source Tympanic 09/01/22 11:41 Pulse 92 H 09/01/22 11:41 Respiratory Rate 18 09/01/22 11:46 Respiratory Effort Short of Breath 09/01/22 11:46 Respiratory Depth Normal 09/01/22 11:46 Respiratory Pattern Normal 09/01/22 11:46 Blood Pressure 148/102 H 09/01/22 11:41 Blood Pressure Position Sitting 09/01/22 11:41 Pulse Oximetry 98 09/01/22 11:41 Oxygen Delivery Method Room Air 09/01/22 11:41 Oxygen Flow Rate 0 09/01/22 11:41
[2022-09-01 12:21] LABS: Abs Immature Grans 0.04 10^3/uL (0.0-0.06); Absolute Basophil Count 0.08 10^3/uL (0.0-0.2); Absolute Eosinophil Count 0.15 10^3/uL (0.0-0.7); Absolute Lymphocyte Count 1.12 10^3/uL (1.2-3.4); Absolute Monocyte Count 0.56 10^3/uL (0.1-0.8); Absolute Neutrophil Count 7.32 10^3/uL (1.2-6.7); Basophils % 0.9; Eosinophils % 1.6; HCT 47.3 % (40.0-50.0); HGB 15.8 g/dL (13.5-17.5); Immature Grans % 0.4; Lymphocytes % 12.1; MCH 29.5 pg (27.0-33.0); MCHC 33.4 % (32.0-36.0); MCV 88 fL (80-95); MPV 10.8 fL (8.0-11.0); Platelet Count 249 10^3/uL (130-400); RBC 5.36 10^6/uL (4.36-5.78); RDW 12.8 % (11.8-14.1); RDW-SD 41.5 fL; WBC 9.27 10^3/uL (4.4-10.8)
[2022-09-01 12:37] LABS: PTT Activated 24.9 sec (21.5-31.9)
[2022-09-01 12:51] LABS: D-Dimer 230 ng/mlFEU (<500)
[2022-09-01 12:54] LABS: ALT 65 U/L (16-63); AST 33 U/L (15-37); Albumin 4.1 g/dL (3.4-5.0); Alkaline Phosphatase 102 U/L (46-116); Anion Gap 7.8 mmol/L (3-11); BUN 9 mg/dL (7-18); Bilirubin, Total 0.6 mg/dL (0.2-1.0); CO2 26.2 mmol/L (21.0-32.0); CREATININE 1.1 mg/dL (0.70-1.30); Calcium 9.6 mg/dL (8.5-10.1); Chloride 104 mmol/L (98-107); Estimated GFR 82.29 (mL/min/1.73m2); Glucose 104 mg/dL (74-106); Lipase 34 U/L (16-77); Potassium 3.9 mmol/L (3.5-5.1); Sodium 138 mmol/L (136-145); Total Protein 7.6 g/dL (6.4-8.2); Troponin I < 50 ng/L (<or=60)
--- NOTE | 2022-09-01 13:45 | DI.RAD_ITS ---
Exam(s) XR PORTABLE CHEST AP EXAM: XR PORTABLE CHEST AP CLINICAL HISTORY: central chest pain TECHNIQUE: 2D digital imaging was performed. COMPARISON: No exams were available for comparison FINDINGS: Exam limited by poor pulmonary inflation LUNGS: Clear. No pleural abnormality seen. HEART: Normal size. AORTA: Normal diameter. BONES: Unremarkable for age. Soft tissues: Unremarkable. IMPRESSION: No acute findings. DATA REPOSITORY: RADIATION DOSE DELIVERED:
== END 2022-09-01 14:22 | disposition home or self-care (01) ==
PROVIDERS: Emergency Provider Student in an Organized Health Care Education/Training Program; PCP Nurse Practitioner Adult Health
DX: R07.89 Other chest pain (principal); E78.00 Pure hypercholesterolemia, unspecified; I10 Essential (primary) hypertension; E11.9 Type 2 diabetes mellitus without complications; J45.909 Unspecified asthma, uncomplicated; Z79.51 Long term (current) use of inhaled steroids
CPT/HCPCS: 36415; 80053; 83690; 93005; 99284; 71045; 84484; 85025; 85379; 85610; 85730; 93010; 99285

== ENCOUNTER 2023-02-06 01:29 | Outpatient (CLI) | payer MEDICAID, SELFPAY ==
[2023-02-06 10:57] LABS: Hemoglobin A1C 5.5 % (<5.7)
[2023-02-06 11:04] LABS: COMMENT (LAB VIEW ONLY) 82.85 mg/dL; Microalb ug/mg Crea 8.7 ug/mg Cr
[2023-02-06 11:07] LABS: Anion Gap 7.2 mmol/L (3-11); BUN 16 mg/dL (7-18); CO2 27.8 mmol/L (21.0-32.0); CREATININE 1.1 mg/dL (0.70-1.30); Calcium 8.9 mg/dL (8.5-10.1); Calculated LDL 72 mg/dL (<100); Chloride 108 mmol/L (98-107); Cholesterol 123 mg/dL (<200); Estimated GFR 82.29 (mL/min/1.73m2); Glucose 108 mg/dL (74-106); HDL Cholesterol 36 mg/dL (40-60); Potassium 4.3 mmol/L (3.5-5.1); Sodium 143 mmol/L (136-145); Triglyceride 75 mg/dL (<150)
== END 2023-02-06 01:30 | disposition home or self-care (01) ==
LOC: LBO 01:29
PROVIDERS: PCP Nurse Practitioner Adult Health; Visit Provider Nurse Practitioner Adult Health
DX: E11.9 Type 2 diabetes mellitus without complications (principal); R03.0 Elevated blood-pressure reading, without diagnosis of hypertension; F17.220 Nicotine dependence, chewing tobacco, uncomplicated; E66.01 Morbid (severe) obesity due to excess calories; Z68.41 Body mass index [BMI] 40.0-44.9, adult
CPT/HCPCS: 36415; 80048; 80061; 82043; 82570; 83036

== ENCOUNTER 2023-12-02 04:58 | Outpatient (CLI) | payer MEDICAID, SELFPAY ==
[2023-12-02 09:17] LABS: Anion Gap 9.4 mmol/L (3-11); BUN 12 mg/dL (7-18); CO2 25.6 mmol/L (21.0-32.0); Calcium 9.2 mg/dL (8.5-10.1); Calculated LDL 47 mg/dL (<100); Chloride 106 mmol/L (98-107); Cholesterol 120 mg/dL (<200); Estimated GFR 91.69 (mL/min/1.73m2); Glucose 265 mg/dL (74-106); HDL Cholesterol 34 mg/dL (40-60); Potassium 4.4 mmol/L (3.5-5.1); Sodium 141 mmol/L (136-145); Triglyceride 197 mg/dL (<150)
[2023-12-02 09:44] LABS: Hemoglobin A1C 10.6 % (<5.7)
[2023-12-02 10:19] LABS: COMMENT (LAB VIEW ONLY) 104.28 mg/dL; Microalb ug/mg Crea 27.7 ug/mg Cr
== END 2023-12-02 04:59 | disposition home or self-care (01) ==
LOC: LBO 04:58
PROVIDERS: Absent Provider Nurse Practitioner Adult Health; PCP Nurse Practitioner Adult Health; Referring Provider Nurse Practitioner Adult Health; Visit Provider Nurse Practitioner Adult Health
DX: E11.9 Type 2 diabetes mellitus without complications (principal); R03.0 Elevated blood-pressure reading, without diagnosis of hypertension; F17.220 Nicotine dependence, chewing tobacco, uncomplicated; E66.01 Morbid (severe) obesity due to excess calories; Z68.41 Body mass index [BMI] 40.0-44.9, adult
CPT/HCPCS: 36415; 80048; 80061; 82043; 82570; 83036